=== PATIENT | female | born 1950 | race Caucasian/White ===

== ENCOUNTER → 2018-05-08 | Outpatient (CLI) | payer MEDICARE, OTHER ==
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
== END ==
LOC: M PAIN 11:30
PROVIDERS: ATTEND Anesthesiology
DX: M47.816 Spondylosis without myelopathy or radiculopathy, lumbar region (principal); M48.061 Spinal stenosis, lumbar region without neurogenic claudication; G89.29 Other chronic pain; I10 Essential (primary) hypertension; Z96.651 Presence of right artificial knee joint; Z96.641 Presence of right artificial hip joint; Z87.891 Personal history of nicotine dependence; Z88.1 Allergy status to other antibiotic agents; Z88.8 Allergy status to other drugs, medicaments and biological substances; Z79.899 Other long term (current) drug therapy

== ENCOUNTER → 2018-05-11 | Outpatient (CLI) | payer MEDICARE, OTHER ==
--- NOTE | 2018-05-12 11:09 | REP ---
MR THORACIC SPINE WITHOUT CONTRAST: HISTORY: Back pain. A small central disc protrusion is present at the T6-7 level. There is minimal effacement of the thecal sac without spinal cord compression. The T6 neural foramina are patent. A disc bulge is present at the T12-L1 level. There is minimal effacement of the thecal sac without spinal cord compression. The T12 neural foramina are patent. There is no other disc bulge or herniation. The remaining neural foramina are patent. The spinal cord is normal in signal intensity. The T11-12 through L1-2 intervertebral discs are decreased in height consistent with disc degeneration. Increased signal intensity on T2-weighted images is present in the endplates of the T11 through L2 vertebral bodies. This represents degenerative change. IMPRESSION: 1. Small disc protrusion at the T6-7 level without spinal cord compression. 2. Disc bulge at the T12-L1 level without spinal cord compression. Electronically Signed by Mariano Shin MD 05/12/2018 11:30 A
== END ==
LOC: M RAD 16:31
PROVIDERS: ATTEND Anesthesiology
DX: M51.24 Other intervertebral disc displacement, thoracic region (principal)

== ENCOUNTER → 2018-07-17 | Outpatient (CLI) | payer MEDICARE, OTHER ==
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
== END ==
LOC: M PAIN 10:00
PROVIDERS: ATTEND Anesthesiology
DX: M79.18 Myalgia, other site (principal); I10 Essential (primary) hypertension; K21.9 Gastro-esophageal reflux disease without esophagitis; Z79.899 Other long term (current) drug therapy; Z88.1 Allergy status to other antibiotic agents; Z88.8 Allergy status to other drugs, medicaments and biological substances; Z96.651 Presence of right artificial knee joint; Z96.641 Presence of right artificial hip joint; Z86.19 Personal history of other infectious and parasitic diseases; Z87.891 Personal history of nicotine dependence

== ENCOUNTER → 2018-08-16 | Outpatient (CLI) | payer MEDICARE, OTHER ==
[~2018-08-16] MED LIST: BUPIVACAINE HCL 0.25% 10 ML VIAL As Ordered ONE; BUPIVACAINE HCL 0.25% 30 ML VIAL As Ordered ONE; FURO20TA2 PO; LAMO150T2 PO; LEVO50TA5 PO; LOSA50TA88 PO; METO1TAB32 PO; METO1TAB7 PO; PAXI40TA10 PO; POTA1TAB23 PO; REME30TA PO; SULF500T2 PO; TIZA6CAP PO; TRIAMCINOLONE ACETONIDE SUSP 40 MG/ML VIAL (J3301) As Ordered ONE; diazePAM 5 MG TAB As Ordered ONE
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
== END ==
LOC: M PAIN 08:30
PROVIDERS: ATTEND Anesthesiology
DX: G89.29 Other chronic pain (principal); M79.18 Myalgia, other site; M54.2 Cervicalgia; R13.19 Other dysphagia; Z79.899 Other long term (current) drug therapy; Z87.891 Personal history of nicotine dependence; Z88.8 Allergy status to other drugs, medicaments and biological substances
CPT/HCPCS: 20552; J3301

== ENCOUNTER 2018-09-04 12:03 | Emergency (ER) | payer MEDICARE, OTHER ==
[2018-09-04] MEDS ORDERED: POTA1TAB23 PO (12:21)
[2018-09-04] MEDS ORDERED: LOSA50TA88 PO (12:21)
[2018-09-04] MEDS ORDERED: REME30TA PO (12:21)
[2018-09-04] MEDS ORDERED: FURO20TA2 PO (12:21)
[2018-09-04] MEDS ORDERED: PAXI40TA10 PO (12:21)
[2018-09-04] MEDS ORDERED: LAMO150T2 PO (12:21)
[2018-09-04] MEDS ORDERED: SULF500T2 PO (12:21)
[2018-09-04] MEDS ORDERED: LEVO50TA5 PO (12:23)
[2018-09-04] MEDS ORDERED: TIZA6CAP PO (12:23)
[2018-09-04] MEDS ORDERED: METO1TAB32 PO (12:23)
[2018-09-04] MEDS ORDERED: ASPIRIN 81 MG CHEW TABLET PO ONE (12:30)
[2018-09-04] MEDS ORDERED: FUROSEMIDE 40 MG/4 ML VIAL (J1940) IV ONE (12:30)
[2018-09-04] MEDS ORDERED: METOPROLOL 5 MG/5 ML VIAL IV SCH (12:30)
[2018-09-04] MEDS ORDERED: METOPROLOL TART 25 MG TABLET PO ONE (13:00)
[2018-09-04 13:04] LABS: BASO # 0.1 10^3/uL (0.0-0.2); BASO % 1.2 % (0.0-1.0); EOS # 0.1 10^3/uL (0.0-0.50); EOS % 1.2 % (0.0-3.0); HEMATOCRIT 39.7 % (36.0-47.0); HEMOGLOBIN 12.7 g/dl (12.0-15.5); LYMPH # 1.2 10^3/uL (1.5-4.5); LYMPH % 27.1 % (24.0-44.0); MEAN CORPUSCULAR HEMOGLOBIN 30.6 pg (27.0-33.0); MEAN CORPUSCULAR VOLUME 95.7 fl (80.0-96.0); MONO # 0.5 10^3/uL (0.0-0.8); MONO % 10.9 % (0.0-5.0); NEUTROPHILS # 2.5 10^3/uL (1.8-7.7); NEUTROPHILS % 58.4 % (36.0-66.0); PLATELET COUNT, AUTOMATED 199 10^3/uL (150-450); RED BLOOD COUNT 4.15 10^6/uL (4.00-5.40); WHITE BLOOD COUNT 4.3 10^3/uL (4.0-10.0)
[2018-09-04 13:05] VITALS: BP 166/105
--- NOTE | 2018-09-04 13:14 | REP ---
CHEST, PORTABLE: AP portable view of the chest is performed. Comparison 11/18/2003. There is no acute infiltrate. Heart is not significantly enlarged. There is a calcification and tortuosity of the thoracic aorta. The mediastinal silhouette is otherwise unremarkable. IMPRESSION: No acute infiltrate. Electronically Signed by Roberto Daniel MD 09/05/2018 11:35 A
[2018-09-04 13:20] LABS: INR 0.95; PROTHROMBIN TIME 12.8 SECONDS (12.1-14.4)
[2018-09-04 13:33] LABS: ALBUMIN 4.2 GM/DL (3.2-5.2); ALT/SGPT 29 U/L (12-78); BILIRUBIN,DIRECT 0.1 MG/DL (0.0-0.2); BILIRUBIN,TOTAL 0.4 MG/DL (0.2-1.0); BLOOD UREA NITROGEN 15 MG/DL (7-18); CALCIUM LEVEL 9.4 MG/DL (8.8-10.2); CARBON DIOXIDE LEVEL 28 MEQ/L (21-32); CHLORIDE LEVEL 103 MEQ/L (98-107); CK-MB VALUE MASS 3.8 NG/ML (<3.6); CPK CREATINE PHOSPHOKINASE 183 U/L (26-192); CREATININE FOR GFR 1.16 MG/DL (0.55-1.30); GLOMERULAR FILTRATION RATE 49.8 (>45); GLUCOSE, FASTING 84 MG/DL (70-100); MB/CK RELATIVE INDEX 2.08 (< OR =4); NT-PRO BNP 176 PG/ML (<125); POTASSIUM SERUM 4.1 MEQ/L (3.5-5.1); SODIUM LEVEL 139 MEQ/L (136-145); TOTAL PROTEIN 7.6 GM/DL (6.4-8.2); TROPONIN I < 0.02 NG/ML (< 0.10)
[2018-09-04] MEDS ORDERED: METO1TAB7 PO (13:40)
[2018-09-04 13:58] VITALS: BP 169/108
--- NOTE | 2018-09-05 07:52 | ECGEPIP ---
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
== END 2018-09-04 14:11 | disposition home or self-care (01) ==
LOC: M ED 12:03
DX: I10 Essential (primary) hypertension (principal); Z79.899 Other long term (current) drug therapy; Z88.1 Allergy status to other antibiotic agents; Z88.8 Allergy status to other drugs, medicaments and biological substances
CPT/HCPCS: 36415; 71045; 80048; 80076; 82550; 82553; 83880; 84484; 85025; 85610; 93005; 93041; 94760; 96374; 99285; G0463; J1940

== ENCOUNTER → 2018-09-04 | Outpatient (CLI) | payer MEDICARE, OTHER ==
[~2018-09-04] MED LIST changes: -BUPIVACAINE HCL 0.25% 10 ML VIAL As Ordered ONE; -BUPIVACAINE HCL 0.25% 30 ML VIAL As Ordered ONE; -TRIAMCINOLONE ACETONIDE SUSP 40 MG/ML VIAL (J3301) As Ordered ONE; -diazePAM 5 MG TAB As Ordered ONE
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
== END ==
LOC: M PAIN 10:15
PROVIDERS: ATTEND Anesthesiology
DX: M79.18 Myalgia, other site (principal); M54.5 Low back pain; G89.29 Other chronic pain; M47.816 Spondylosis without myelopathy or radiculopathy, lumbar region; Z79.891 Long term (current) use of opiate analgesic; Z79.899 Other long term (current) drug therapy; Z87.891 Personal history of nicotine dependence; Z88.8 Allergy status to other drugs, medicaments and biological substances

== ENCOUNTER → 2018-11-14 | Outpatient (REF) | payer MEDICARE, OTHER ==
[2018-11-14 16:52] LABS: BASO # 0.1 10^3/uL (0.0-0.2); BASO % 1.3 % (0.0-1.0); EOS # 0.2 10^3/uL (0.0-0.50); EOS % 3.2 % (0.0-3.0); HEMOGLOBIN 11.9 g/dl (12.0-15.5); LYMPH # 1.2 10^3/uL (1.5-4.5); LYMPH % 22.6 % (24.0-44.0); MEAN CORPUSCULAR HGB CONC 32.2 g/dl (32.0-36.5); MEAN CORPUSCULAR VOLUME 102.5 fl (80.0-96.0); MONO # 0.6 10^3/uL (0.0-0.8); MONO % 11.5 % (0.0-5.0); NEUTROPHILS # 3.1 10^3/uL (1.8-7.7); NEUTROPHILS % 58.6 % (36.0-66.0); PLATELET COUNT, AUTOMATED 173 10^3/uL (150-450); RED BLOOD COUNT 3.61 10^6/uL (4.00-5.40); WHITE BLOOD COUNT 5.3 10^3/uL (4.0-10.0)
[2018-11-14 17:07] LABS: ALBUMIN 4.3 GM/DL (3.2-5.2); BILIRUBIN,TOTAL 0.5 MG/DL (0.2-1.0); CALCIUM LEVEL 9.3 MG/DL (8.8-10.2); CHOLESTEROL RISK RATIO 3.839 (<5); CREATININE FOR GFR 1.4 MG/DL (0.55-1.30); FREE T4 0.9 NG/DL (0.76-1.46); GLOMERULAR FILTRATION RATE 40.1 (>45); POTASSIUM SERUM 4.2 MEQ/L (3.5-5.1); THYROID STIMULATING HORMONE 1.92 uIU/ML (0.358-3.740); TOTAL PROTEIN 7.1 GM/DL (6.4-8.2)
== END ==
LOC: M SFHCLERA 10:57
PROVIDERS: ATTEND Nurse Practitioner Family
DX: I12.9 Hypertensive chronic kidney disease with stage 1 through stage 4 chronic kidney disease, or unspecified chronic kidney disease (principal); E03.9 Hypothyroidism, unspecified; E78.2 Mixed hyperlipidemia; N18.3 Chronic kidney disease, stage 3 (moderate)

== ENCOUNTER → 2018-11-20 | Outpatient (CLI) | payer MEDICARE, OTHER ==
[~2018-11-20] MED LIST changes: +CALCCAP4 PO; -LAMO150T2 PO; +LAMO150T3 PO; +PANT20TA2 PO; +PANT40TA3 PO; +PRAM1TAB7 PO; +ROSU10TA6 PO; +TIZA4TAB4 PO
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
== END ==
LOC: M PAIN 15:00
PROVIDERS: ATTEND Anesthesiology
DX: M54.5 Low back pain (principal); G89.29 Other chronic pain; M79.18 Myalgia, other site; I10 Essential (primary) hypertension; K21.9 Gastro-esophageal reflux disease without esophagitis; Z96.641 Presence of right artificial hip joint; Z96.651 Presence of right artificial knee joint; Z87.891 Personal history of nicotine dependence; Z88.1 Allergy status to other antibiotic agents; Z88.8 Allergy status to other drugs, medicaments and biological substances; Z79.899 Other long term (current) drug therapy

== ENCOUNTER → 2018-11-24 | Outpatient (CLI) | payer MEDICARE, OTHER ==
[~2018-11-24] MED LIST changes: +BUPIVACAINE HCL 0.25% 10 ML VIAL As Ordered ONE; +BUPIVACAINE HCL 0.25% 30 ML VIAL As Ordered ONE; -CALCCAP4 PO; +LAMO150T2 PO; -LAMO150T3 PO; -PANT20TA2 PO; -PANT40TA3 PO; -PRAM1TAB7 PO; -ROSU10TA6 PO; -TIZA4TAB4 PO; +TRIAMCINOLONE ACETONIDE SUSP 40 MG/ML VIAL (J3301) As Ordered ONE; +diazePAM 5 MG TAB As Ordered ONE; +oxyCODONE 5MG TAB As Ordered ONE
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
== END ==
LOC: M PAIN 13:15
PROVIDERS: ATTEND Anesthesiology
DX: M79.18 Myalgia, other site (principal); I10 Essential (primary) hypertension; M54.5 Low back pain; M54.2 Cervicalgia; K21.9 Gastro-esophageal reflux disease without esophagitis; R13.19 Other dysphagia; Z96.653 Presence of artificial knee joint, bilateral; Z79.899 Other long term (current) drug therapy; Z88.8 Allergy status to other drugs, medicaments and biological substances; Z88.1 Allergy status to other antibiotic agents
CPT/HCPCS: 20552; J3301

== ENCOUNTER → 2018-12-12 | Outpatient (CLI) | payer MEDICARE, OTHER ==
[~2018-12-12] MED LIST changes: -BUPIVACAINE HCL 0.25% 10 ML VIAL As Ordered ONE; -BUPIVACAINE HCL 0.25% 30 ML VIAL As Ordered ONE; -TRIAMCINOLONE ACETONIDE SUSP 40 MG/ML VIAL (J3301) As Ordered ONE; -diazePAM 5 MG TAB As Ordered ONE; -oxyCODONE 5MG TAB As Ordered ONE
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
== END ==
LOC: M PAIN 15:00
PROVIDERS: ATTEND Anesthesiology
DX: M51.16 Intervertebral disc disorders with radiculopathy, lumbar region (principal); I10 Essential (primary) hypertension; M54.2 Cervicalgia; K21.9 Gastro-esophageal reflux disease without esophagitis; R13.10 Dysphagia, unspecified; N28.9 Disorder of kidney and ureter, unspecified; Z96.652 Presence of left artificial knee joint; Z96.641 Presence of right artificial hip joint; Z90.49 Acquired absence of other specified parts of digestive tract; Z87.891 Personal history of nicotine dependence; Z79.899 Other long term (current) drug therapy; Z88.8 Allergy status to other drugs, medicaments and biological substances; Z88.1 Allergy status to other antibiotic agents

== ENCOUNTER → 2019-01-02 | Outpatient (CLI) | payer MEDICARE, OTHER ==
[~2019-01-02] MED LIST changes: +CALCCAP4 PO; -LAMO150T2 PO; +LAMO150T3 PO; +PANT20TA2 PO; +PANT40TA3 PO; +PRAM1TAB7 PO; +ROSU10TA6 PO; +TIZA4TAB4 PO
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
== END ==
LOC: M PAIN 15:15
PROVIDERS: ATTEND Anesthesiology
DX: M51.16 Intervertebral disc disorders with radiculopathy, lumbar region (principal); G89.29 Other chronic pain; I10 Essential (primary) hypertension; K21.9 Gastro-esophageal reflux disease without esophagitis; Z96.652 Presence of left artificial knee joint; Z96.642 Presence of left artificial hip joint; Z87.891 Personal history of nicotine dependence; Z88.1 Allergy status to other antibiotic agents; Z88.8 Allergy status to other drugs, medicaments and biological substances; Z79.899 Other long term (current) drug therapy

== ENCOUNTER → 2019-01-30 | Outpatient (CLI) | payer MEDICARE, OTHER ==
[~2019-01-30] MED LIST changes: -CALCCAP4 PO; +LAMO150T2 PO; -LAMO150T3 PO; -PANT20TA2 PO; -PRAM1TAB7 PO; -ROSU10TA6 PO; -TIZA4TAB4 PO
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
== END ==
LOC: M PAIN 08:30
PROVIDERS: ATTEND Anesthesiology
DX: M54.5 Low back pain (principal); G89.29 Other chronic pain; M51.16 Intervertebral disc disorders with radiculopathy, lumbar region; I10 Essential (primary) hypertension; K21.9 Gastro-esophageal reflux disease without esophagitis; Z96.652 Presence of left artificial knee joint; Z96.641 Presence of right artificial hip joint; Z87.891 Personal history of nicotine dependence; Z88.1 Allergy status to other antibiotic agents; Z88.8 Allergy status to other drugs, medicaments and biological substances; Z79.899 Other long term (current) drug therapy

== ENCOUNTER → 2019-02-02 | Outpatient (REF) | payer MEDICARE, OTHER ==
[~2019-02-02] MED LIST changes: -LAMO150T2 PO; +LAMO150T3 PO
[2019-02-02 16:40] LABS: BASO # 0.1 10^3/uL (0.0-0.2); BASO % 1.5 % (0.0-1.0); EOS # 0.1 10^3/uL (0.0-0.5); EOS % 2.2 % (0.0-3.0); HEMOGLOBIN 11.9 g/dl (12.0-15.5); LYMPH # 1.9 10^3/uL (1.5-5.0); LYMPH % 28.6 % (24.0-44.0); MEAN CORPUSCULAR HEMOGLOBIN 32.8 pg (27.0-33.0); MEAN CORPUSCULAR HGB CONC 31.3 g/dl (32.0-36.5); MEAN CORPUSCULAR VOLUME 104.7 fl (80.0-96.0); MONO # 0.7 10^3/uL (0.0-0.8); NEUTROPHILS # 3.5 10^3/uL (1.5-8.5); NEUTROPHILS % 53.6 % (36.0-66.0); PLATELET COUNT, AUTOMATED 214 10^3/uL (150-450); RED BLOOD COUNT 3.63 10^6/uL (4.00-5.40); WHITE BLOOD COUNT 6.5 10^3/uL (4.0-10.0)
[2019-02-02 16:51] LABS: CALCIUM LEVEL 8.9 MG/DL (8.8-10.2); CREATININE FOR GFR 1.69 MG/DL (0.55-1.30); GLOMERULAR FILTRATION RATE 32.1 (>45); POTASSIUM SERUM 4.5 MEQ/L (3.5-5.1)
[2019-02-06 10:07] LABS: Methylmalonic Acid 445 nmol/L (0-378)
== END ==
LOC: M SFHCLERA 10:24
PROVIDERS: ATTEND Family Medicine
DX: Z01.818 Encounter for other preprocedural examination (principal); D75.89 Other specified diseases of blood and blood-forming organs
CPT/HCPCS: 80048; 82607; 82746; 83921; 85025; 93005; G0463

== ENCOUNTER → 2019-02-08 | Outpatient (CLI) | payer MEDICARE, OTHER ==
[~2019-02-08] MED LIST changes: +LAMO150T2 PO; -LAMO150T3 PO
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
== END ==
LOC: M PAIN 12:00
PROVIDERS: ATTEND Anesthesiology
DX: M51.16 Intervertebral disc disorders with radiculopathy, lumbar region (principal); N18.3 Chronic kidney disease, stage 3 (moderate); R71.8 Other abnormality of red blood cells

== ENCOUNTER → 2019-04-12 | Outpatient (CLI) | payer MEDICARE, BC ==
[~2019-04-12] MED LIST changes: +CALCCAP4 PO; -LAMO150T2 PO; +LAMO150T3 PO; +PANT20TA2 PO; +PRAM1TAB7 PO; +ROSU10TA6 PO; +TIZA4TAB4 PO
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
== END ==
LOC: M PAIN 15:00
PROVIDERS: ATTEND Anesthesiology
DX: M51.16 Intervertebral disc disorders with radiculopathy, lumbar region (principal); N18.3 Chronic kidney disease, stage 3 (moderate); R71.8 Other abnormality of red blood cells

== ENCOUNTER → 2019-04-16 | Outpatient (REF) | payer MEDICARE, BC ==
[2019-04-16 20:36] LABS: INR 1.13; PROTHROMBIN TIME 14.2 SECONDS (11.8-14.0)
== END ==
LOC: M SFHCLERA 15:54
PROVIDERS: ATTEND Nurse Practitioner Family
DX: Z01.818 Encounter for other preprocedural examination (principal); Z79.899 Other long term (current) drug therapy
CPT/HCPCS: 85610; G0463

== ENCOUNTER → 2019-04-20 | Outpatient (CLI) | payer MEDICARE, BC ==
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
== END ==
LOC: M PAIN 14:30
PROVIDERS: ATTEND Anesthesiology
DX: M47.816 Spondylosis without myelopathy or radiculopathy, lumbar region (principal); M46.1 Sacroiliitis, not elsewhere classified; G89.29 Other chronic pain; I10 Essential (primary) hypertension; K21.9 Gastro-esophageal reflux disease without esophagitis; Z96.652 Presence of left artificial knee joint; Z96.641 Presence of right artificial hip joint; Z87.891 Personal history of nicotine dependence; Z88.1 Allergy status to other antibiotic agents; Z88.8 Allergy status to other drugs, medicaments and biological substances; Z79.899 Other long term (current) drug therapy

== ENCOUNTER → 2019-05-29 | Outpatient (CLI) | payer MEDICARE, BC ==
[~2019-05-29] MED LIST changes: +BUPIVACAINE HCL 0.25% 30 ML VIAL As Ordered ONE; +CHLO25TA PO; +ISOVUE-M 300 61% 15ML VIAL (Q9967) As Ordered ONE; +K 10100T PO; +LIDOCAINE 1% SDV INJ 30 ML VIAL As Ordered ONE; +LOPR1TAB7 PO; +NORV5TAB PO
--- NOTE | 2019-05-29 13:51 | REP ---
C-ARM VIEWS LOWER LUMBAR SPINE: Clinical history: Pain. Two C-arm views lower lumbar spine are performed during bilateral facet injection performed by Dr. Swift. Three needles are seen along the bilateral lower lumbar spine. Contrast is injected. 37 seconds of fluoroscopy time utilized. Electronically Signed by Roberto Daniel MD 05/29/2019 07:57 P
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
== END ==
LOC: M PAIN 10:45
PROVIDERS: ATTEND Anesthesiology
DX: M47.816 Spondylosis without myelopathy or radiculopathy, lumbar region (principal); M47.817 Spondylosis without myelopathy or radiculopathy, lumbosacral region; I10 Essential (primary) hypertension; K21.9 Gastro-esophageal reflux disease without esophagitis; G47.33 Obstructive sleep apnea (adult) (pediatric); Z87.891 Personal history of nicotine dependence; Z79.899 Other long term (current) drug therapy; Z88.8 Allergy status to other drugs, medicaments and biological substances
CPT/HCPCS: 64493; 64494; Q9967

== ENCOUNTER 2019-06-07 13:39 | Inpatient (IN) | payer MEDICARE, BC ==
[~2019-06-07] VITALS: Ht 162.6 cm; Wt 92.6 kg
[~2019-06-07 13:39] MED LIST changes: -BUPIVACAINE HCL 0.25% 30 ML VIAL As Ordered ONE; -ISOVUE-M 300 61% 15ML VIAL (Q9967) As Ordered ONE; -LIDOCAINE 1% SDV INJ 30 ML VIAL As Ordered ONE
[2019-06-07 14:38] LABS: BASO # 0.1 10^3/uL (0.0-0.2); BASO % 0.9 % (0.0-1.0); EOS # 0.1 10^3/uL (0.0-0.5); EOS % 1.2 % (0.0-3.0); HEMATOCRIT 34.5 % (36.0-47.0); HEMOGLOBIN 11.3 g/dl (12.0-15.5); LYMPH # 1.5 10^3/uL (1.5-5.0); LYMPH % 22.7 % (24.0-44.0); MEAN CORPUSCULAR HEMOGLOBIN 32.4 pg (27.0-33.0); MEAN CORPUSCULAR HGB CONC 32.8 g/dl (32.0-36.5); MEAN CORPUSCULAR VOLUME 98.9 fl (80.0-96.0); MONO # 0.6 10^3/uL (0.0-0.8); MONO % 9.2 % (0.0-5.0); NEUTROPHILS # 4.2 10^3/uL (1.5-8.5); NEUTROPHILS % 62.2 % (36.0-66.0); PLATELET COUNT, AUTOMATED 219 10^3/uL (150-450); RED BLOOD COUNT 3.49 10^6/uL (4.00-5.40); WHITE BLOOD COUNT 6.8 10^3/uL (4.0-10.0)
--- NOTE | 2019-06-07 14:40 | REP ---
Portable chest x-ray: Single view. History: Chest pain. Comparison chest x-ray: September 04, 2018. Findings: Monitoring electrodes overlie the chest. The patient is rotated slightly to the left. The lungs are well inflated and clear. The pleural angles are sharp. Cardiomediastinal silhouette and bony thorax are unremarkable. Impression: No acute disease. Electronically Signed by Anirudh Tejada MD 06/07/2019 02:31 P
[2019-06-07 14:56] LABS: BLOOD UREA NITROGEN 37 MG/DL (7-18); CALCIUM LEVEL 8.8 MG/DL (8.8-10.2); CARBON DIOXIDE LEVEL 27 MEQ/L (21-32); CHLORIDE LEVEL 104 MEQ/L (98-107); CPK CREATINE PHOSPHOKINASE 168 U/L (26-192); CREATININE FOR GFR 1.89 MG/DL (0.55-1.30); GLOMERULAR FILTRATION RATE 28.2 (>45); GLUCOSE, FASTING 106 MG/DL (70-100); MB/CK RELATIVE INDEX 1.79 (< OR =4); POTASSIUM SERUM 3.8 MEQ/L (3.5-5.1); SODIUM LEVEL 138 MEQ/L (136-145); TROPONIN I < 0.02 NG/ML (< 0.10)
[2019-06-07] MEDS ORDERED: NS 1,000 ML IV ONE ×2 (16:00→16:15)
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
--- NOTE | 2019-06-07 16:50 | REP ---
CT of the cervical spine without IV contrast: Axial images are acquired with helical scanning and are reformatted sagittal and coronal projections. The skull base, C1 and C2 are unremarkable. Vertebral body heights and alignment are normal. The facets are normally aligned. There is diffuse facet osteoarthritis. There is degenerative disc disease at C4-5 and C5-6. The prevertebral soft tissues are unremarkable. There are no posterior element fractures. Impression: There is no fracture or listhesis. There is facet osteoarthritis. There is degenerative disc disease as described. Electronically Signed by Roberto Rose MD 06/07/2019 04:42 P
[2019-06-07] MEDS ORDERED: METO1TAB33 PO (19:01)
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
[2019-06-07 20:30] VITALS: BP 122/87
[2019-06-07] MEDS: NS 1,000 ML IV SCH (20:48)
--- NOTE | 2019-06-07 20:49 | REPVR ---
PROCEDURE INFORMATION: Exam: US Retroperitoneal Limited, Kidneys Exam date and time: 06/07/2019 7:58 PM Age: 68 years old Clinical indication: Abnormal findings; Abnormal lab test; Abnormal kidney function lab tests; Additional info: [place] TECHNIQUE: Imaging protocol: Real-time ultrasound of the retroperitoneum with image documentation. Examination was focused on the kidneys. COMPARISON: No relevant prior studies available. FINDINGS: Right kidney: The right kidney measures 11.3 x 5.3 x 3.8 cm. There is increased echogenicity of the right renal cortex, suggestive of medical renal disease. No hydronephrosis of the right kidney. At the inferior pole of the right kidney, there is an exophytic simple appearing cyst measuring 2.4 x 2.2 x 2.5 cm. At the midpole of the right kidney, a small hypoechoic cyst is identified measuring 0.6 x 0.8 x 0.6 cm. Left kidney: The left kidney measures 10.7 x 4.2 x 5.0 cm. There is increased echogenicity of the left renal cortex, suggestive of medical renal disease. No hydronephrosis of the left kidney. Foci of increased echogenicity are identified within the left renal sinus fat, without definitive posterior acoustic shadowing to confirm nephrolithiasis. Exophytic to the lower pole of the left kidney, there is a 1.9 x 1.7 x 1.7 cm cyst. This is mildly complex, with a small focus of increased echogenicity or calcification visualized peripherally. Bladder: Bilateral ureteral jets are identified within the bladder. No significant bladder wall thickening. IMPRESSION: 1. There is increased echogenicity of the bilateral renal cortices, suggestive of medical renal disease. Clinical correlation is recommended. 2. At the inferior pole of the right kidney, there is an exophytic simple appearing cyst. At the midpole of the right kidney, a small cyst is identified. 3. Exophytic to the lower pole of the left kidney, there is a 1.9 x 1.7 x 1.7 cm cyst. This is mildly complex, with a small focus of increased echogenicity or calcification visualized peripherally. Follow-up ultrasonography recommended. COMMENTS: Consistent with the [employer]'s Incidental Findings Committee white paper (J Am Drew Radiol 2018): Any incidental cystic renal lesion classified in this report as too small to characterize or simple appearing is likely a benign cyst. No follow-up imaging is recommended for these lesions per consensus recommendations based on imaging criteria. Electronically signed by: Hayden Martin On 06/07/2019 20:49:39 PM
[2019-06-07 20:54] LABS: CK-MB VALUE MASS 2.5 NG/ML (<3.6); CPK CREATINE PHOSPHOKINASE 150 U/L (26-192); MAGNESIUM LEVEL 1.6 MG/DL (1.8-2.4); MB/CK RELATIVE INDEX 1.67 (< OR =4); TROPONIN I < 0.02 NG/ML (< 0.10)
[2019-06-07 21:39] LABS: APPEARANCE, URINE CLEAR (CLEAR); BILIRUBIN, URINE AUTO NEGATIVE (NEGATIVE); BLOOD, URINE BLOOD NEGATIVE (NEGATIVE); COLOR, URINE YELLOW (YELLOW); GLUCOSE, URINE (UA) AUTO NEGATIVE (NEGATIVE); KETONE, URINE AUTO NEGATIVE (NEGATIVE); LEUKOCYTE ESTERASE, URINE AUTO NEGATIVE (NEGATIVE); NITRITE, URINE AUTO NEGATIVE (NEGATIVE); PROTEIN, URINE AUTO NEGATIVE (NEGATIVE); SPECIFIC GRAVITY URINE AUTO 1.005 (1.002-1.035)
[2019-06-07 21:40] LABS: BACTERIA, URINE AUTO NEG (NEGATIVE); RBC, URINE AUTO 0 /HPF (0-3); SQUAMOUS EPITHELIAL CELL UR AU 0 /HPF (0-6); TRANSITIONAL EPITHELIAL AUTO 0 /HPF; WBC, URINE AUTO 2 /HPF (0-3)
[2019-06-07 21:47] LABS: CREATININE,RANDOM URINE 40.6 MG/DL; SODIUM,RANDOM URINE 75 MEQ/L; UREA NITROGEN RANDOM URINE 249 MG/DL
[2019-06-07] MEDS: MIRTAZAPINE 15 MG TAB PO SCH ×2 (22:56→22:57)
[2019-06-07] MEDS: PRAMIPEXOLE 1 MG TAB PO SCH ×2 (22:56→22:57)
[2019-06-07] MEDS: ROSUVASTATIN 10 MG TAB (CRESTOR) PO SCH ×2 (22:56→22:57)
[2019-06-08] VITALS: BP_SYST 102; BP_SYST 133; BP_SYST 99; BP_DIAS 56; BP_DIAS 85
[2019-06-08 02:43] LABS: CK-MB VALUE MASS 2.2 NG/ML (<3.6); CPK CREATINE PHOSPHOKINASE 145 U/L (26-192); MB/CK RELATIVE INDEX 1.52 (< OR =4); TROPONIN I < 0.02 NG/ML (< 0.10)
[2019-06-08 03:33] LABS: MAGNESIUM LEVEL 1.7 MG/DL (1.8-2.4)
[2019-06-08 06:00] VITALS: BP 98/66
[2019-06-08 06:01] LABS: HEMATOCRIT 31.7 % (36.0-47.0); HEMOGLOBIN 10.3 g/dl (12.0-15.5); MEAN CORPUSCULAR HEMOGLOBIN 31.8 pg (27.0-33.0); MEAN CORPUSCULAR HGB CONC 32.5 g/dl (32.0-36.5); MEAN CORPUSCULAR VOLUME 97.8 fl (80.0-96.0); PLATELET COUNT, AUTOMATED 153 10^3/uL (150-450); RED BLOOD COUNT 3.24 10^6/uL (4.00-5.40); WHITE BLOOD COUNT 4.7 10^3/uL (4.0-10.0)
[2019-06-08 06:19] LABS: CALCIUM LEVEL 8.2 MG/DL (8.8-10.2); CREATININE FOR GFR 1.49 MG/DL (0.55-1.30); GLOMERULAR FILTRATION RATE 37.2 (>45); MAGNESIUM LEVEL 1.6 MG/DL (1.8-2.4); POTASSIUM SERUM 3.6 MEQ/L (3.5-5.1)
[2019-06-08] MEDS: PANTOPRAZOLE 20 MG TAB PO SCH (08:11)
[2019-06-08] MEDS: PARoxetine 20 MG TAB PO SCH (08:11)
[2019-06-08] MEDS: POTASSIUM CHLORIDE 10 MEQ SR TABLET PO SCH (08:11)
[2019-06-08] MEDS: LEVOTHYROXINE 50MCG TABLET (0.05MG) PO SCH (08:11)
[2019-06-08] MEDS ORDERED: POTASSIUM CHLORIDE 10 MEQ SR TABLET PO ONE (08:45)
[2019-06-08] MEDS: MAG SULF 1GM/100ML (MAG RUN) 1 GM in IV 1 EA IV SCH ×3 (10:00→11:00)
--- NOTE | 2019-06-08 10:48 | REP ---
DUPLEX CAROTID SONOGRAPHY: HISTORY: Syncope. FINDINGS: Antegrade flow was observed in both vertebral arteries. RIGHT CAROTID: The right common carotid artery is unremarkable. There is mild mixed plaquing in the bulb and proximal ICA on two-dimensional scanning. Color flow and spectral Doppler interrogation are unremarkable on the right. Velocity Chart Right Carotid: PSV EDV Right CCA 77 cm/s Right ICA 52 cm/s 25 cm/s Right ECA 47 cm/s Right ICA/CCA ratio normal 0.67. IMPRESSION: Less than 50% category narrowing in the right ICA by Doppler velocity criteria. LEFT CAROTID: The left common carotid artery is unremarkable on two-dimensional scanning. Color flow and spectral Doppler interrogation are unremarkable on the left. Velocity Chart Left Carotid: PSV EDV Left CCA 71 cm/s Left ICA 51 cm/s 24 cm/s Left ECA 46 cm/s Left ICA/CCA ratio normal 0.9 IMPRESSION: Less than 50% category narrowing in the left ICA by Doppler velocity criteria. Electronically Signed by Anirudh Tejada MD 06/08/2019 11:12 A
[2019-06-08] MEDS: NS 1,000 ML IV SCH (11:51)
[2019-06-08 14:00] VITALS: BP 115/75
[2019-06-08 15:57] VITALS: BP_SYST 109; BP_SYST 110; BP_DIAS 65; BP_DIAS 69; BP_DIAS 71
--- NOTE | 2019-06-08 19:28 | ECGEPIP ---
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
[2019-06-08] MEDS: MIRTAZAPINE 15 MG TAB PO SCH (21:11)
[2019-06-08] MEDS: PRAMIPEXOLE 1 MG TAB PO SCH (21:11)
[2019-06-08] MEDS: ROSUVASTATIN 10 MG TAB (CRESTOR) PO SCH (21:11)
[2019-06-08 21:18] VITALS: BP 147/95
--- NOTE | 2019-06-08 21:43 | IPNPDOC ---
Date Seen The patient was seen on 06/08/19. Progress Note SUBJECTIVE: 68-year-old female with past medical history of Chronic kidney disease, hypertension and hypothyroidism, was admitted for orthostatic hypotension and bradycardia, likely related to antihypertensive medication. Patient reports a chronic history of uncontrolled hypertension requiring m ultiple antihypertensive medications. Patient does report multiple falls over the past few months secondary to dizziness upon standing up. Patient remains orthostatic positive in the morning, otherwise asymptomatic at rest. She denies any shortness of breath, chest pain, nausea, vomiting, no fever, diarrhea or constipation at this time. 10 point review of system is negative except for above PHYSICAL EXAMINATION: VITAL SIGNS: Please see below. GENERAL: No distress HEENT: Normocephalic, atraumatic, moist mucous membranes NECK: Supple CARDIOVASCULAR EXAMINATION: S1, S2, no murmurs RESPIRATORY EXAMINATION: Clear to auscultation, no wheezing ABDOMINAL EXAMINATION: Soft, nontender, nondistended, positive bowel sounds EXTREMITIES: Range of motion intact SKIN: No rash NEUROLOGICAL EXAMINATION: Alert and oriented 3, no focal deficits PSYCHIATRIC EXAMINATION: Calm and cooperative LABORATORY DATA, IMAGING STUDIES, MICROBIOLOGY: Please see below. ASSESSMENT AND PLAN: 68-year-old female with past medical history of hypertension, chronic kidney disease and hypothyroidism was admitted for ort hostatic hypotension and bradycardia secondary to dehydration and antihypertensive medication. PROBLEMS: 1. Orthostatic hypotension: Likely iatrogenic from antihypertensive along with dehydration, hold Norvasc, chlorthalidone losartan and metoprolol for now, we will reintroduce antihypertensives as tolerated, continue orthostatic checks every 12 hours, continue IV hydration. 2. Acute on chronic kidney disease: Improving with IV hydration, continue IV fluids, hold chlorthalidone and losartan. 3. Hypothyroidism: Continue levothyroxine. DVT prophylaxis: Heparin subcutaneous GI prophylaxis: Home PPI VS, I&O, 24H, Fishbone Vital Signs/I&O Vital Signs Date Time Temp Pulse Resp B/P (MAP) Pulse Ox O2 Delivery O2 Flow Rate FiO2 06/08/19 21:18 56 147/95 (112) 06/08/19 14:00 97.6 18 93 06/08/19 06:00 Room Air l I&O- Last 24 Hours up to 6 AM 06/08/19 06:00 Intake Total 2140 ml Output Total 1200 ml Balance 940 ml Laboratory Data 24H LABS Laboratory Tests 2 06/08/19 02:03: Magnesium Level 1.7L, Total Creatine Kinase 145, Creatine Kinase MB 2.2, Creatine Kinase MB Relative Index 1.52, Troponin I < 0.02 06/08/19 05:35: Magnesium Level 1.6L, Nucleated Red Blood Cells % (auto) 0.0, Anion Gap 6L, Gl omerular Filtration Rate 37.2L, Calcium Level 8.2L CBC/BMP Laboratory Tests 06/08/19 05:35 ALVA LARSEN MD Jun 08, 2019 21:43
[2019-06-08] MEDS ORDERED: PERCOCET 5MG/325MG TAB PO PRN (21:45)
[2019-06-08 22:00] VITALS: BP 138/90
[2019-06-08] MEDS: HEPARIN SOD (PORCINE) 5000 UNITS/ML VIAL (J1644 PER 1000UNITS) SQ SCH (22:26)
[2019-06-08] MEDS: ACETAMINOPHEN TAB 650MG DOSE (2X325MG) PO PRN (22:27)
[2019-06-09] VITALS (9 sets, daily range): BP systolic 110–166; BP diastolic 80–100
[2019-06-09 06:05] LABS: HEMATOCRIT 33.5 % (36.0-47.0); MEAN CORPUSCULAR HEMOGLOBIN 31.9 pg (27.0-33.0); MEAN CORPUSCULAR HGB CONC 32.8 g/dl (32.0-36.5); MEAN CORPUSCULAR VOLUME 97.1 fl (80.0-96.0); PLATELET COUNT, AUTOMATED 152 10^3/uL (150-450); RED BLOOD COUNT 3.45 10^6/uL (4.00-5.40); WHITE BLOOD COUNT 4.2 10^3/uL (4.0-10.0)
[2019-06-09 06:14] LABS: CALCIUM LEVEL 8.3 MG/DL (8.8-10.2); CREATININE FOR GFR 1.22 MG/DL (0.55-1.30); GLOMERULAR FILTRATION RATE 46.8 (>45); MAGNESIUM LEVEL 2.5 MG/DL (1.8-2.4); POTASSIUM SERUM 4.2 MEQ/L (3.5-5.1)
[2019-06-09] MEDS: PANTOPRAZOLE 20 MG TAB PO SCH (09:33)
[2019-06-09] MEDS: POTASSIUM CHLORIDE 10 MEQ SR TABLET PO SCH (09:33)
[2019-06-09] MEDS: LEVOTHYROXINE 50MCG TABLET (0.05MG) PO SCH (09:33)
[2019-06-09] MEDS: HEPARIN SOD (PORCINE) 5000 UNITS/ML VIAL (J1644 PER 1000UNITS) SQ SCH ×2 (09:34→21:17)
[2019-06-09] MEDS: PARoxetine 20 MG TAB PO SCH (09:34)
[2019-06-09] MEDS: ACETAMINOPHEN TAB 650MG DOSE (2X325MG) PO PRN ×2 (11:45→21:18)
--- NOTE | 2019-06-09 12:52 | ECHO ---
DATE OF PROCEDURE: 06/08/2019 LOCATION: Room 4205 REASON FOR STUDY: Syncope. 2D MEASUREMENTS: IVS: 1.2 cm LV: 4.7 cm LVPW: 1.0 cm LA: 3.6 cm Aorta: 3.4 cm RV: 3.8 cm DOPPLER MEASUREMENTS: Mitral E: 0.9, Mitral A: 0.7 with a ratio of 0.2 Maximum tricuspid valve velocity: 2.2 m/s 2D COMMENTS: 1. Normal left ventricular size, wall thickness and normal global left ventricular systolic function. The estimated left ventricular systolic ejection fraction is 60 to 65%. 2. Normal left atrium. Normal right atrium and right ventricle. 3. The atrial septum appeared to be normal without evidence of defect or shunt. 4. Normal aortic root. 5. Trace to small pericardial effusion was noted. No evidence of cardiac tamponade. 6. Moderately calcified aortic valve with normal leaflet excursion. Normal mitral valve, tricuspid valve and pulmonic valve. The proximal pulmonary artery branches were not well visualized. 7. The inferior vena cava was not visualized. DOPPLER: It detects trace mitral regurgitation, trace aortic regurgitation, traced pulmonic regurgitation, and trace tricuspid regurgitation. The calculated pulmonary artery systolic pressure was normal. Assessment of the left ventricular diastolic function appeared to be normal. IMPRESSION: 1. Normal global left ventricular systolic and diastolic function. 2. Aortic valve sclerosis with trace aortic regurgitation. 3. Trace mitral regurgitation. 4. Trace tricuspid regurgitation with a normal calculated pulmonary artery systolic pressure. 5. Trace pulmonic regurgitation. 6. Trace to small pericardial effusion noted. No evidence of cardiac tamponade. [facility]
[2019-06-09] MEDS: NS 1,000 ML IV SCH (13:38)
[2019-06-09] MEDS ORDERED: amLODIPine 10 MG TAB PO ONE (16:00)
--- NOTE | 2019-06-09 18:14 | IPNPDOC ---
Date Seen The patient was seen on 06/09/19. Progress Note SUBJECTIVE: 68-year-old female with past medical history of Chronic kidney disease, hypertension and hypothyroidism, was admitted for orthostatic hypotension and bradycardia, likely related to antihypertensive medication. Patient reports a chronic history of uncontrolled hypertension requiring m ultiple antihypertensive medications. Patient does report multiple falls over the past few months secondary to dizziness upon standing up. Patient remains orthostatic positive in the morning, otherwise asymptomatic at rest. She denies any shortness of breath, chest pain, nausea, vomiting, no fever, diarrhea or constipation at this time. 06/09/19 Patient seen in the morning, comfortable, working physical therapy and did well initially but did develop symptoms afterwards. She remains orthostatic positive. 10 point review of system is negative except for above PHYSICAL EXAMINATION: VITAL SIGNS: Please see below. GENERAL: No distress HEENT: Normocephalic, atraumatic, moist mucous membranes NECK: Supple CARDIOVASCULAR EXAMINATION: S1, S2, no murmurs RESPIRATORY EXAMINATION: Clear to auscultation, no wheezing ABDOMINAL EXAMINATION: Soft, nontender, nondistended, positive bowel sounds EXTREMITIES: Range of motion intact SKIN: No rash NEUROLOGICAL EXAMINATION: Alert and oriented 3, no focal deficits PSYCHIATRIC EXAMINATION: Calm and cooperative LABORATORY DATA, IMAGING STUDIES, MICROBIOLOGY: Please see below. ASSESSMENT AND PLAN: 68-year-old female with past medical history of hypert ension, chronic kidney disease and hypothyroidism was admitted for orthostatic hypotension and bradycardia secondary to dehydration and antihypertensive medication. PROBLEMS: 1. Orthostatic hypotension: Likely multifactorial from dehydration/iatrogenic/autonomic dysfunction, continue orthostatic blood pressure checks every 12 hours, continue IV hydration, will provide compression stockings, continue physical therapy, will assess in the morning and start midodrine if needed, we'll allow supine hypertension. 2. Acute on chronic kidney disease: Resolved with IV fluids, will monitor 3. Hypothyroidism: Continue levothyroxine. DVT prophylaxis: Heparin subcutaneous GI prophylaxis: Home PPI VS, I&O, 24H, Fishbone Vital Signs/I&O Vital Signs Date Time Temp Pulse Resp B/P (MAP) Pulse Ox O2 Delivery O2 Flow Rate FiO2 06/09/19 17:51 19 Room Air 06/09/19 17:45 75 110/90 (97) 06/09/19 14:00 97.4 97 I&O- Last 24 Hours up to 6 AM 06/09/19 06:00 Intake Total 2096 ml Output Total 3900 ml Balance -1804 ml Laboratory Data 24H LABS Laboratory Tests 2 06/09/19 05:29: Nucleated Red Blood Cells % (auto) 0.0 06/09/19 05:30: Anion Gap 4L, Glomerular Filtration Rate 46.8, Calcium Level 8.3L, Magnesium Level 2.5H CBC/BMP Laboratory Tests 06/09/19 05:29 06/09/19 05:30 ALVA LARSEN MD Jun 09, 2019 18:14
[2019-06-09] MEDS: PRAMIPEXOLE 1 MG TAB PO SCH (21:16)
[2019-06-09] MEDS: ROSUVASTATIN 10 MG TAB (CRESTOR) PO SCH (21:16)
[2019-06-09] MEDS: MIRTAZAPINE 15 MG TAB PO SCH (21:17)
[2019-06-10 05:44] VITALS: BP_SYST 125; BP_SYST 136; BP_SYST 139; BP_DIAS 102; BP_DIAS 87; BP_DIAS 98
[2019-06-10 05:57] LABS: HEMATOCRIT 34.7 % (36.0-47.0); HEMOGLOBIN 11.4 g/dl (12.0-15.5); MEAN CORPUSCULAR HEMOGLOBIN 32.1 pg (27.0-33.0); MEAN CORPUSCULAR HGB CONC 32.9 g/dl (32.0-36.5); MEAN CORPUSCULAR VOLUME 97.7 fl (80.0-96.0); PLATELET COUNT, AUTOMATED 163 10^3/uL (150-450); RED BLOOD COUNT 3.55 10^6/uL (4.00-5.40); WHITE BLOOD COUNT 3.9 10^3/uL (4.0-10.0)
[2019-06-10 06:00] VITALS: BP 113/81
[2019-06-10] MEDS: ACETAMINOPHEN TAB 650MG DOSE (2X325MG) PO PRN (06:09)
[2019-06-10 06:27] LABS: CALCIUM LEVEL 8.3 MG/DL (8.8-10.2); CREATININE FOR GFR 1.24 MG/DL (0.55-1.30); GLOMERULAR FILTRATION RATE 45.9 (>45); MAGNESIUM LEVEL 2.3 MG/DL (1.8-2.4); POTASSIUM SERUM 4.2 MEQ/L (3.5-5.1)
[2019-06-10] MEDS ORDERED: amLODIPine 10 MG TAB PO SCH (09:00)
[2019-06-10] MEDS: PARoxetine 20 MG TAB PO SCH (09:02)
[2019-06-10] MEDS: PANTOPRAZOLE 20 MG TAB PO SCH (09:02)
[2019-06-10] MEDS: LEVOTHYROXINE 50MCG TABLET (0.05MG) PO SCH (09:02)
[2019-06-10] MEDS: HEPARIN SOD (PORCINE) 5000 UNITS/ML VIAL (J1644 PER 1000UNITS) SQ SCH (09:03)
[2019-06-10] MEDS: NS 1,000 ML IV SCH (11:58)
--- NOTE | 2019-06-10 21:40 | DS.PDOC ---
Discharge Summary General Date of Admission Jun 07, 2019 at 19:22 Date of Discharge 06/10/19 Attending Physician: ALVA LARSEN MD Discharge Summary PROCEDURES PERFORMED DURING STAY: None ADMITTING DIAGNOSES: 1. Recurrent falls, orthostatic hypotension, syncope DISCHARGE DIAGNOSES: 1. Recurrent falls, orthostatic hypotension, syncope COMPLICATIONS/CHIEF COMPLAINT: Valeriano; Bradycardia;Orthostasis. HISTORY OF PRESENT ILLNESS: 68 y.o female was admitted for recurrent falls, syn cope & orthostatic hypotension. Patient was being treated with four antihypertensives for reportedly resistant hypertension. All antihypertensives were held and patient was noted to have supine hypertension but normal blood pressure w/ sitting/standing. Patient was evaluated and cleared by physical therapy for discharge home. Patient remained Orthostatic positive given elevated supine BP, compression stockings and hydration were recommended. Patient is clinically and hemodynamically stable for discharge and outpatient follow up. Patient will be discharged on ZERO antihypertensives and is strongly advised to follow up w/ her PCP in 1 week for BP check and restarting anti-hypertensives (if warranted), one at at time. HOSPITAL COURSE: As above DISCHARGE MEDICATIONS: Please see below. ALLERGIES: Please see below. PHYSICAL EXAMINATION: VITAL SIGNS: Please see below. GENERAL: No distress HEENT: Normocephalic, atraumatic, moist mucous membranes NECK: Supple CARDIOVASCULAR EXAMINATION: S1, S2, no murmurs RESPIRATORY EXAMINATION: Clear to auscultation, no wheezing ABDOMINAL EXAMINATION: Soft, nontender, nondistended, positive bowel sounds EXTREMITIES: Range of motion intact SKIN: No rash NEUROLOGICAL EXAMINATION: Alert and oriented 3, no focal deficits PSYCHIATRIC EXAMINATION: Calm and cooperative LABORATORY DATA: Please see below. IMAGING: CT head ^ neck negative for acute pathology PROGNOSIS: Fair ACTIVITY: As tolerated DIET: Cardiac DISCHARGE PLAN: Follow up with PCP in 1-2 weeks DISPOSITION: 01 Home, Self-Care. DISCHARGE INSTRUCTIONS: 1. As above DISCHARGE CONDITION: Stable TIME SPENT ON DISCHARGE: Greater than 32 minutes. Vital Signs/I&Os Vital Signs Date Time Temp Pulse Resp B/P (MAP) Pulse Ox O2 Delivery O2 Flow Rate FiO2 06/10/19 06:00 98.2 89 17 113/81 (92) 95 Room Air I&O- Last 24 Hours up to 6 AM 06/10/19 06:00 Intake Total 3870 ml Output Total 2850 ml Balance 1020 ml Laboratory Data Labs 24H Laboratory Tests 2 06/10/19 05:27: Nucleated Red Blood Cells % (auto) 0.0, Anion Gap 1L, Glomerular Filtration Rate 45.9, Calcium Level 8.3L, Magnesium Level 2.3 CBC/BMP Laboratory Tests 06/10/19 05:27 Discharge Medications Scheduled Calcium Carbonate/Vitamin D3 (Calcium 600 + Vit D 400 Softgl) 1 Each Capsule, 1 CAP PO QHS, (Reported) Lamotrigine (Lamotrigine) 150 Mg Tablet, 150 MG PO BID, (Reported) Levothyroxine Sodium (Levothyroxine Sodium) 50 Mcg Tablet, 50 MCG PO DAILY, (Reported) Mirtazapine (Remeron) 30 Mg Tablet, 30 MG PO QHS, (Reported) Pantoprazole Sodium (Pantoprazole Sodium) 20 Mg Tablet.dr, 20 MG PO DAILY, (Reported) Paroxetine HCl (Paxil) 40 Mg Tablet, 40 MG PO DAILY, (Reported) Pramipexole Di-HCl (Pramipexole Dihydrochloride) 1 Mg Tablet, 1 MG PO QHS, (Reported) Rosuvastatin Calcium (Rosuvastatin Calcium) 10 Mg Tablet, 10 MG PO QHS, (Reported) Sulfasalazine (Sulfasalazine) 500 Mg Tablet, 1,000 MG PO BID, (Reported) Scheduled PRN Tizanidine HCl (Tizanidine HCl) 4 Mg Tablet, 4 MG PO Q12H PRN for MUSCLE SPASMS, (Reported) Allergies Coded Allergies: tetracycline (Verified Allergy, Mild, rash/diarrhea, 06/07/19) aripiprazole (Verified Adverse Reaction, Mild, weakness, "made me dopey", 04/16/19) estradiol (Verified Adverse Reaction, Mild, hyper, 04/16/19) ALVA LARSEN MD Jun 10, 2019 21:40
== END 2019-06-10 14:24 | disposition home or self-care (01) | DRG 312 ==
LOC: M ED 13:39 → M ED INP 19:22 → ENRESERV 19:40 → M MSPAV 20:24
PROVIDERS: ADMIT Internal Medicine; ATTEND Internal Medicine
DX: I95.1 Orthostatic hypotension (principal); N17.9 Acute kidney failure, unspecified; A69.21 Meningitis due to Lyme disease; A69.29 Other conditions associated with Lyme disease; R29.6 Repeated falls; Z79.899 Other long term (current) drug therapy; Z88.8 Allergy status to other drugs, medicaments and biological substances; E03.9 Hypothyroidism, unspecified; M54.2 Cervicalgia; I10 Essential (primary) hypertension; Z96.641 Presence of right artificial hip joint; Z96.652 Presence of left artificial knee joint; Z90.49 Acquired absence of other specified parts of digestive tract; Z87.891 Personal history of nicotine dependence; R00.1 Bradycardia, unspecified; E78.5 Hyperlipidemia, unspecified; F41.9 Anxiety disorder, unspecified; F32.9 Major depressive disorder, single episode, unspecified; E66.9 Obesity, unspecified; Z68.35 Body mass index [BMI] 35.0-35.9, adult; E86.0 Dehydration

== ENCOUNTER → 2019-06-12 | Outpatient (CLI) | payer MEDICARE, BC ==
[~2019-06-12] MED LIST changes: +AMLO10TA5 PO; +AMLO5TAB6 PO; +METO1TAB33 PO; +PARO20TA3 PO; +TOPR100T PO; +VENTAER INH
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
== END ==
LOC: M PAIN 09:30
PROVIDERS: ATTEND Nurse Practitioner Family
DX: M47.816 Spondylosis without myelopathy or radiculopathy, lumbar region (principal); I10 Essential (primary) hypertension; K21.9 Gastro-esophageal reflux disease without esophagitis; R13.10 Dysphagia, unspecified; G47.33 Obstructive sleep apnea (adult) (pediatric); Z87.891 Personal history of nicotine dependence; Z79.899 Other long term (current) drug therapy; Z88.8 Allergy status to other drugs, medicaments and biological substances

== ENCOUNTER → 2019-06-12 | Outpatient (REF) | payer MEDICARE, BC ==
[~2019-06-12] MED LIST changes: -AMLO10TA5 PO; -PARO20TA3 PO; -TOPR100T PO; -VENTAER INH
[2019-06-12 17:01] LABS: ALBUMIN 4.8 GM/DL (3.2-5.2); BILIRUBIN,TOTAL 0.6 MG/DL (0.2-1.0); CALCIUM LEVEL 10.7 MG/DL (8.8-10.2); CREATININE FOR GFR 2.97 MG/DL (0.55-1.30); GLOMERULAR FILTRATION RATE 16.8 (>45); MAGNESIUM LEVEL 2.1 MG/DL (1.8-2.4); POTASSIUM SERUM 3.5 MEQ/L (3.5-5.1); TOTAL PROTEIN 8.4 GM/DL (6.4-8.2)
== END ==
LOC: M SFHCLERA 12:24
PROVIDERS: ATTEND Nurse Practitioner Family
DX: R00.0 Tachycardia, unspecified (principal)

== ENCOUNTER 2019-06-13 16:13 | Inpatient (IN) | payer MEDICARE, BC ==
[~2019-06-13] VITALS: Ht 162.6 cm; Wt 91.6 kg
[~2019-06-13 16:13] MED LIST changes: -AMLO5TAB6 PO
[2019-06-13] MEDS ORDERED: PROMETHAZINE INJ 25 MG/ML VIAL (J2550) IV ONE (16:30)
[2019-06-13] MEDS ORDERED: NS 1,000 ML IV ONE (16:30)
[2019-06-13 16:47] LABS: BASO # 0.1 10^3/uL (0.0-0.2); BASO % 0.5 % (0.0-1.0); EOS % 0.3 % (0.0-3.0); HEMATOCRIT 41.2 % (36.0-47.0); LYMPH # 2.1 10^3/uL (1.5-5.0); LYMPH % 18.9 % (24.0-44.0); MEAN CORPUSCULAR HEMOGLOBIN 32.5 pg (27.0-33.0); MEAN CORPUSCULAR VOLUME 95.6 fl (80.0-96.0); MONO # 0.9 10^3/uL (0.0-0.8); MONO % 7.9 % (0.0-5.0); NEUTROPHILS # 7.8 10^3/uL (1.5-8.5); NEUTROPHILS % 70.9 % (36.0-66.0); PLATELET COUNT, AUTOMATED 250 10^3/uL (150-450); RED BLOOD COUNT 4.31 10^6/uL (4.00-5.40); WHITE BLOOD COUNT 10.9 10^3/uL (4.0-10.0)
[2019-06-13 17:29] LABS: ALBUMIN 4.8 GM/DL (3.2-5.2); BILIRUBIN,DIRECT 0.2 MG/DL (0.0-0.2); BILIRUBIN,TOTAL 0.7 MG/DL (0.2-1.0); CALCIUM LEVEL 10.2 MG/DL (8.8-10.2); CK-MB VALUE MASS 4.1 NG/ML (<3.6); CREATININE FOR GFR 2.47 MG/DL (0.55-1.30); GLOMERULAR FILTRATION RATE 20.7 (>45); MB/CK RELATIVE INDEX 1.93 (< OR =4); POTASSIUM SERUM 3.5 MEQ/L (3.5-5.1); TOTAL PROTEIN 8.5 GM/DL (6.4-8.2); TROPONIN I 0.03 NG/ML (< 0.10)
[2019-06-13] MEDS ORDERED: AMLO5TAB6 PO (17:36)
--- NOTE | 2019-06-13 17:43 | ECGEPIP ---
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
[2019-06-13] MEDS ORDERED: LORazepam 2 MG/ML VIAL (J2060) IV PRN (18:45)
[2019-06-13] MEDS ORDERED: ACETAMINOPHEN 325 MG TAB PO ONE (18:45)
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
[2019-06-13] MEDS: LR 1,000 ML IV SCH (19:56)
[2019-06-13 20:12] LABS: FREE T4 1.27 NG/DL (0.76-1.46); THYROID STIMULATING HORMONE 2.46 uIU/ML (0.358-3.740)
[2019-06-13 20:30] VITALS: BP 140/90
[2019-06-13] MEDS ORDERED: LORazepam 2 MG/ML VIAL (J2060) As Ordered ONE (20:36)
[2019-06-13] MEDS: ONDANSETRON 4MG/2ML VIAL (J2405) IV PRN (20:44)
[2019-06-13 21:00] VITALS: BP 145/69
[2019-06-13] MEDS: sulfaSALAzine 500 MG TABEC PO SCH (21:13)
[2019-06-13] MEDS: CYPROHEPTADINE 4 MG TAB PO SCH (21:15)
[2019-06-13] MEDS: lamoTRIgine 25 MG TAB PO SCH (21:16)
[2019-06-13] MEDS: lamoTRIgine 100MG TAB PO SCH (21:16)
[2019-06-13 22:00] VITALS: BP 115/87
[2019-06-13 22:38] LABS: CALCIUM LEVEL 9.1 MG/DL (8.8-10.2); CREATININE FOR GFR 2.02 MG/DL (0.55-1.30); GLOMERULAR FILTRATION RATE 26.2 (>45); POTASSIUM SERUM 3.3 MEQ/L (3.5-5.1)
[2019-06-13 23:00] VITALS: BP 115/61
[2019-06-13] MEDS ORDERED: PREVNAR 13 VACCINE SYRINGE (CPT CODE:90670) IM PRN (23:15)
[2019-06-14] VITALS (10 sets, daily range): BP systolic 89–148; BP diastolic 52–87
[2019-06-14] MEDS ORDERED: POTASSIUM CHLORIDE 10 MEQ SR TABLET PO ONE
[2019-06-14] MEDS ORDERED: ACETAMINOPHEN TAB 650MG DOSE (2X325MG) PO ONE (00:15)
[2019-06-14] MEDS ORDERED: LORazepam 2 MG/ML VIAL (J2060) As Ordered ONE (00:21)
[2019-06-14] MEDS: LORazepam 2 MG/ML VIAL (J2060) IV PRN ×4 (00:24→22:17)
[2019-06-14] MEDS: LR 1,000 ML IV SCH ×4 (02:45→17:58)
[2019-06-14] MEDS: CYPROHEPTADINE 4 MG TAB PO SCH ×2 (05:08→14:32)
[2019-06-14] MEDS: LEVOTHYROXINE 50MCG TABLET (0.05MG) PO SCH (05:08)
[2019-06-14 05:30] LABS: HEMATOCRIT 35.4 % (36.0-47.0); MEAN CORPUSCULAR HEMOGLOBIN 32.3 pg (27.0-33.0); MEAN CORPUSCULAR HGB CONC 32.5 g/dl (32.0-36.5); MEAN CORPUSCULAR VOLUME 99.4 fl (80.0-96.0); PLATELET COUNT, AUTOMATED 160 10^3/uL (150-450); RED BLOOD COUNT 3.56 10^6/uL (4.00-5.40); WHITE BLOOD COUNT 5.7 10^3/uL (4.0-10.0)
[2019-06-14 05:48] LABS: HEMOGLOBIN 11.5 g/dl (12.0-15.5)
[2019-06-14 06:01] LABS: ALBUMIN 3.6 GM/DL (3.2-5.2); CREATININE FOR GFR 2.03 MG/DL (0.55-1.30); PHOSPHORUS LEVEL 3.5 MG/DL (2.5-4.9); POTASSIUM SERUM 4.3 MEQ/L (3.5-5.1)
[2019-06-14] MEDS: lamoTRIgine 25 MG TAB PO SCH (09:02)
[2019-06-14] MEDS: sulfaSALAzine 500 MG TABEC PO SCH ×2 (09:02→22:05)
[2019-06-14] MEDS: lamoTRIgine 100MG TAB PO SCH (09:03)
[2019-06-14] MEDS: amLODIPine 5 MG TAB PO SCH (09:04)
[2019-06-14] MEDS: ENOXAPARIN 40 MG/0.4 ML SYRINGE (J1650) SC SCH (09:05)
[2019-06-14] MEDS: PANTOPRAZOLE 40MG INJ (PROTONIX) (C9113) IV SCH (09:05)
--- NOTE | 2019-06-14 11:53 | IPNPDOC ---
Date Seen The patient was seen on 06/14/19. Progress Note SUBJECTIVE: Patient is fully alert and appears fairly comfortable, speaking in complete s entences. Tremors noted in all extremities. BP noted to drop to 89/57 overnight but had since come up. HR fluctuate 80-120. Patient was placed in ICU. OBJECTIVE PHYSICAL EXAMINATION: VITAL SIGNS: Please see below. General: Alert, obese, diffuse tremors Eyes: Normal sclera, EOMI HENT: Atraumatic Cardiovascular: Tachycardic, regular rhythm. Pulmonary: Clear to auscultation b/l, no wheezing GI: Soft, mild abdominal discomfort diffusely, no significant pain elicited. Skin: Warm and dry Neuro: CN grossly intact. Diffuse tremors in all extremities. Psych: oriented x 3 LABORATORY DATA, IMAGING STUDIES, MICROBIOLOGY: Please see below. DVT prophylaxis ordered?: lovenox Home Medications: - sulfasalazine 500 mg two tablets twice a day - rosuvastatin 10 mg daily - mirtazapine 30 mg at bedtime - Paxil 40 mg daily - Mirapex (pramipexole) 1 mg daily - Lamictal 150 mg twice a day - Protonix 20 mg daily - levothyroxine 50 mcg daily - Restasis eye drops - tizanidine 4 mg every 12 hours as needed for muscle spasms - amlodipine 5 mg daily ASSESSMENT AND PLAN: 1. Diffuse tremors - Initially suspected Serotonin syndrome although appear to be unlikely, discussed with Psych. Previously on Remeron, Paroxetine, Mirapex and tizanidine. - All had been discontinued. Would not resume Paroxetine on discharge, to follow up with Psych post discharge for any further medication changes. - Physical manifestation looks like tardive dyskinesia but does not appear to be on a typical or atypical antipsychotic. - Very mild leukocytosis 10.9 on arrival now had resolved. No clear source of infection suspected at this time. Urine no signs of infection. f/u blood culture s. - Neurology consulted for evaluation of tremors. 2. HTN - BP now controlled. Previously elevated follow by hypotensive overnight. - On only low dose Norvasc 5 mg daily, should not cause significant hypotension. - Monitor closely. Discontinue if BP remains low. 3. Hypothyroidism - c/w home dose synthroid. - Thyroid panel WNL. 4. HLD - Crestor held for musculoskeletal issues. 5. Depression with mood disorders - Has been on Remeron, Paxil, Mirapex, and tizanidine all had been held. Also on Lamictal for mood instability. - Consider resuming slowly except for Paxil. Remeron should not contribute to serotonin syndrome. 6. WM on CKD - Improving. c/w IVF hydration. - Monitor daily BMP. 7. Myeloid disorder? - s/p Bone marrow biopsy at [facility] 01/2019 showing hypercellular bone marrow, T cell increased blast. - Chromosome was normal. To continue follow with Heme/Onc post discharge. 8. KINGSLEY - c/w nightime CPAP at home settings. 9. Psoriatic arthritis- c/w sulfasalazine. DISPOSITION: Home once stable. VS, I&O, 24H, Fishbone Vital Signs/I&O Vital Signs Date Time Temp Pulse Resp B/P (MAP) Pulse Ox O2 Delivery O2 Flow Rate FiO2 06/14/19 09:04 112 104/67 06/14/19 07:00 98.4 16 93 NIPPV (BIPAP/CPAP) 06/14/19 06:38 1.0 I&O- Last 24 Hours up to 6 AM 06/14/19 06:00 Intake Total 2827.5 ml Output Total 600 ml Balance 2227.5 ml Laboratory Data 24H LABS Laboratory Tests 2 06/13/19 16:36: Immature Granulocyte % (Auto) 1.5, Neutrophils (%) (Auto) 70.9H, Lymphocytes (%) (Auto) 18.9L, Monocytes (%) (Auto) 7.9H, Eosinophils (%) (Auto) 0.3, Basophils (%) (Auto) 0.5, Neutrophils # (Auto) 7.8, Lymphocytes # (Auto) 2.1, Monocytes # (Auto) 0.9H, Eosinophils # (Auto) 0.0, Basophils # (Auto) 0.1, Nucleated Red Blood Cells % (auto) 0.0, Anion Gap 13, Glomerular Filtration Rate 20.7L, Calcium Level 10.2, Total Bilirubin 0.7, Direct Bilirubin 0.2, Aspartate Amino Transf (AST/SGOT) 43H, Alanine Aminotransferase (ALT/SGPT) 49, Alkaline Phosphatase 100, Total Creatine Kinase 212H, Creatine Kinase MB 4.1H, Creatine Kinase MB Relative Index 1.93, Troponin I 0.03, Total Protein 8.5H, Albumin 4.8, Albumin/Globulin Ratio 1.30, Lipase 100 06/13/19 19:21: Thyroid Stimulating Hormone (TSH) 2.460, Free Thyroxine 1.27 06/13/19 21:25: Urine Color YELLOW, Urine Appearance CLEAR, Urine pH 5.0, Urine Specific [place] 1.006, Urine Protein NEGATIVE, Urine Glucose (UA) NEGATIVE, Urine Ketones NEGATIVE, Urine Blood NEGATIVE, Urine Nitrite NEGATIVE, Urine Bilirubin NEGA TIVE, Urine Urobilinogen 0.2, Urine Leukocyte Esterase NEGATIVE, Urine WBC (Auto) 2, Urine RBC (Auto) 1, Urine Hyaline Casts (Auto) 0, Urine Bacteria (Auto) NEGATIVE, Urine Squamous Epithelial Cells 0, Urine Transitional Epithelial Cells <1, Urine Mucus (Auto) SMALL, Urine Sperm (Auto) 06/13/19 21:57: Anion Gap 10, Glomerular Filtration Rate 26.2L, Calcium Level 9.1 06/14/19 05:05: Nucleated Red Blood Cells % (auto) 0.0, Anion Gap 4L, Glomerular Filtration Rate 26.0L, Calcium Level 9.0, Phosphorus Level 3.5, Total Creatine Kinase 154, Albumin 3.6# CBC/BMP Laboratory Tests 06/13/19 16:36 06/13/19 21:57 06/14/19 05:05 DACIA RODRIGUEZ MD Jun 14, 2019 11:53
[2019-06-14] MEDS: ACETAMINOPHEN TAB 650MG DOSE (2X325MG) PO PRN ×2 (13:13→22:04)
[2019-06-14] MEDS: ONDANSETRON 4MG/2ML VIAL (J2405) IV PRN (13:13)
[2019-06-15] VITALS (7 sets, daily range): BP systolic 130–162; BP diastolic 60–90
[2019-06-15] MEDS: LR 1,000 ML IV SCH (00:29)
[2019-06-15 05:48] LABS: HEMATOCRIT 31.6 % (36.0-47.0); HEMOGLOBIN 9.9 g/dl (12.0-15.5); MEAN CORPUSCULAR HEMOGLOBIN 31.6 pg (27.0-33.0); MEAN CORPUSCULAR HGB CONC 31.3 g/dl (32.0-36.5); PLATELET COUNT, AUTOMATED 135 10^3/uL (150-450); RED BLOOD COUNT 3.13 10^6/uL (4.00-5.40); WHITE BLOOD COUNT 3.5 10^3/uL (4.0-10.0)
[2019-06-15 05:56] LABS: ALBUMIN 3.3 GM/DL (3.2-5.2); CALCIUM LEVEL 8.5 MG/DL (8.8-10.2); CREATININE FOR GFR 1.6 MG/DL (0.55-1.30); GLOMERULAR FILTRATION RATE 34.2 (>45); PHOSPHORUS LEVEL 2.8 MG/DL (2.5-4.9); POTASSIUM SERUM 3.7 MEQ/L (3.5-5.1)
[2019-06-15] MEDS: LEVOTHYROXINE 50MCG TABLET (0.05MG) PO SCH (06:05)
--- NOTE | 2019-06-15 07:15 | CR ---
DATE OF CONSULTATION: 06/14/2019 REFERRING PHYSICIAN: Dr. Hudson REASON FOR CONSULTATION: Severe tremor, nausea, imbalance and acute renal failure. HISTORY OF PRESENT ILLNESS: Maryam Baltazar is a 68-year-old woman who was hospitalized between 06/07/2019 - 06/10/2019 for acute kidney injury and hypotension. She was noted to have supine hypertension, but normal blood pressure when sitting or standing. She was seen for followup on 06/12/2019 at the office of her primary care physician and also saw nephrology who had started her on amlodipine. The patient states that she woke up yesterday morning and felt severe tremor of her arms and legs and even her trunk, chest and abdomen were shaking. She would not be able to hold anything. Ativan would help her tremor temporarily. For the last one week, she has also been experiencing headaches. She denies any neck or back pain. She has fallen a couple of times in the last 6-9 months. She felt nausea and vomiting since yesterday. She felt lightheadedness and imbalance. Her creatinine went up to 2.97 yesterday with GFR of 16.8. In August 2018, her creatinine was 1.16 and GFR was 49.8. On 06/09/2019, her creatinine was 1.2 and GFR was 46.8. PAST MEDICAL HISTORY: Lyme disease in July 2016. She developed Lyme meningitis, myocarditis and iritis. Chiari malformation per history. Chronic back and neck pain. The patient goes to the pain clinic for injections. Acid reflux. Chronic kidney disease. Sleep apnea on CPAP. Cholecystectomy. Rotator cuff injection. Appendectomy. Left knee surgery. Right hip replacement. Hematoma of right hip. Bilateral bunion repair. Sinus surgery. Bilateral carpal tunnel surgery. SOCIAL HISTORY: She denies smoking, alcohol or illicit drugs. FAMILY HISTORY: Father had cancer. Mother in her 60s. Sister had multiple myeloma, heart disease and stroke. REVIEW OF SYSTEMS: All systems were reviewed and found to be noncontributory except as mentioned in history of present illness. HOME MEDICATIONS: Lamictal 150 mg by mouth twice a day. Sulfasalazine 1000 mg by mouth twice a day. Crestor 10 mg by mouth daily. Remeron 30 mg by mouth at bedtime. Paxil 40 mg by mouth daily. Mirapex 1 mg by mouth daily. Protonix 20 mg by mouth daily. Levothyroxine 50 mcg by mouth daily. Tizanidine 4 mg by mouth every 12 hours. Amlodipine 5 mg by mouth daily. ALLERGIES: DOXEPIN. TETRACYCLINE. ESTRADIOL. ABILIFY. PHYSICAL EXAMINATION: Weight 86.3 kg. Height 5 feet 4 inches. Temperature 97.8. Pulse 115. Blood pressure 142/80. 94% saturation on room air. Heart: Regular rate and rhythm. Lungs: Clear to auscultation. Abdomen: Soft. Nontender. Nondistended. No pedal edema. No musculoskeletal abnormalities. No rash. No signs of meningeal irritation. No dysmetria. The patient has prominent tremor of arms and legs and at times her upper torso as well. The patient is awake, alert and oriented to place, person and time. Normal speech, comprehension and repetition. Extraocular muscles are intact. No facial weakness. Tongue and uvula are midline. No nystagmus. 5/5 strength in all four extremities. Deep tendon reflexes are 1+ in arms and knees and absent at ankles. Plantars are down going. She has normal sensation bilaterally in her arms and legs. No dysmetria. DIAGNOSTIC STUDIES: CT scan of her head was normal on 06/07/2019. Hemoglobin 11.5. Platelet count 160. ASSESSMENT: Lamictal toxicity causing Parkinsonism, tremor, nausea, vomiting and imbalance and Lamictal toxicity is being induced by acute kidney injury superimposed on chronic renal insufficiency. Lamictal is more than 90% cleared by kidneys and due to acute on chronic renal injury her Lamictal level in blood likely has doubled or tripled causing her symptoms. PLAN: 1. Discontinue Lamictal and if needs to be started for her mood disorder, restart at 50 mg by mouth twice a day on 06/17/2019. Her Lamictal level will slowly decrease and her kidney functions will be improving as well. If patient continues to go through fluctuations in her renal functions, her Lamictal level will fluctuate accordingly. She should start Lamictal 50 mg by mouth twice a day and patient can discuss with her psychiatrist ad terminal makeup operator benefits of lamotrigine. 2. My index of suspicion for serotonin syndrome is extremely low. The patient should talk to her psychiatrist about her medications including Paxil, mirtazapine and Lamictal.
[2019-06-15] MEDS: ENOXAPARIN 40 MG/0.4 ML SYRINGE (J1650) SC SCH (08:23)
[2019-06-15] MEDS: sulfaSALAzine 500 MG TABEC PO SCH ×2 (08:23→19:50)
[2019-06-15] MEDS: PANTOPRAZOLE 40MG INJ (PROTONIX) (C9113) IV SCH (08:23)
[2019-06-15] MEDS: amLODIPine 5 MG TAB PO SCH (08:24)
[2019-06-15] MEDS: ACETAMINOPHEN TAB 650MG DOSE (2X325MG) PO PRN (12:34)
--- NOTE | 2019-06-15 14:05 | IPNPDOC ---
Date Seen The patient was seen on 06/15/19. Progress Note SUBJECTIVE: Patient appears more comfortable today, tachycardia resolved. Afebrile overnight. Tremors improved noticably although still present. Had been seen by Neurology. Lamictal had been discontinued for likely toxicity. OBJECTIVE PHYSICAL EXAMINATION: VITAL SIGNS: Please see below. General: Alert, obese, diffuse tremors Eyes: Normal sclera, EOMI HENT: Atraumatic Cardiovascular: regular rate, regular rhythm. Pulmonary: Clear to auscultation b/l, no wheezing GI: Soft, mild abdominal discomfort diffusely, no significant pain elicited. Skin: Warm and dry Neuro: CN grossly intact. Diffuse tremors in all extremities. Psych: oriented x 3 LABORATORY DATA, IMAGING STUDIES, MICROBIOLOGY: Please see below. DVT prophylaxis ordered?: lovenox Home Medications: - sulfasalazine 500 mg two tablets twice a day - rosuvastatin 10 mg daily - mirtazapine 30 mg at bedtime - Paxil 40 mg daily - Mirapex (pramipexole) 1 mg daily - Lamictal 150 mg twice a day - Protonix 20 mg daily - levothyroxine 50 mcg daily - Restasis eye drops - tizanidine 4 mg every 12 hours as needed for muscle spasms - amlodipine 5 mg daily ASSESSMENT AND PLAN: 1. Diffuse tremors likely 2/2 Lamictal toxicity - Diffuse tremors in setting of impaired kidney function. Evaluated by neurology, lamictal discontinued. - Initially suspected Serotonin syndrome although appear to be unlikely, discussed with Psych. Previously on Remeron, Paroxetine, Mirapex and tizanidine. - Continue holding lamictal and continue to supportive care. Likely can be be d/c tomorrow if tremors continue to improve, evaluated and cleared by PT today. 2. HTN - BP now controlled. Previously elevated follow by hypotensive overnight. - On only low dose Norvasc 5 mg daily. 3. Hypothyroidism - c/w home dose synthroid. - Thyroid panel WNL. 4. HLD - Crestor held for musculoskeletal issues. 5. Depression with mood disorders - Has been on Remeron, Paxil, Mirapex, and tizanidine all had been held. Also on Lamictal for mood instability. - Consider resuming slowly except for Paxil. Remeron should not contribute to serotonin syndrome. 6. WM on CKD - Improving. c/w IVF hydration. - Monitor daily BMP. 7. Myeloid disorder? - s/p Bone marrow biopsy at [facility] 01/2019 showing hypercellular bone marrow, T cell increased blast. - Chromosome was normal. To continue follow with Heme/Onc post discharge. 8. KINGSLEY - c/w nightime CPAP at home settings. 9. Psoriatic arthritis- c/w sulfasalazine. DISPOSITION: Home once stable. VS, I&O, 24H, Fishbone Vital Signs/I&O Vital Signs Date Time Temp Pulse Resp B/P (MAP) Pulse Ox O2 Delivery O2 Flow Rate FiO2 06/15/19 12:00 98.9 98 18 140/85 (103) 92 Room Air 06/14/19 06:38 1.0 I&O- Last 24 Hours up to 6 AM 06/15/19 06:00 Intake Total 5370 ml Output Total 450 ml Balance 4920 ml Laboratory Data 24H LABS Laboratory Tests 2 06/15/19 05:05: Nucleated Red Blood Cells % (auto) 0.0, Anion Gap 2L, Glomerular Filtration Rate 34.2L, Calcium Level 8.5L, Phosphorus Level 2.8, Albumin 3.3 CBC/BMP Laboratory Tests 06/15/19 05:05 Microbiology Microbiology 06/14/19 Blood Culture - Preliminary, Resulted No growth after 24 hours . All specim... 06/14/19 Blood Culture - Preliminary, Resulted No growth after 24 hours . All specim... DACIA RODRIGUEZ MD Jun 15, 2019 14:05
[2019-06-16] VITALS (7 sets, daily range): BP systolic 139–180; BP diastolic 80–110
[2019-06-16] MEDS: LEVOTHYROXINE 50MCG TABLET (0.05MG) PO SCH (05:28)
[2019-06-16 06:11] LABS: HEMATOCRIT 33.1 % (36.0-47.0); HEMOGLOBIN 10.5 g/dl (12.0-15.5); MEAN CORPUSCULAR HEMOGLOBIN 31.7 pg (27.0-33.0); MEAN CORPUSCULAR HGB CONC 31.7 g/dl (32.0-36.5); PLATELET COUNT, AUTOMATED 145 10^3/uL (150-450); RED BLOOD COUNT 3.31 10^6/uL (4.00-5.40); WHITE BLOOD COUNT 4.3 10^3/uL (4.0-10.0)
[2019-06-16 06:21] LABS: ALBUMIN 3.6 GM/DL (3.2-5.2); CALCIUM LEVEL 8.5 MG/DL (8.8-10.2); CREATININE FOR GFR 1.4 MG/DL (0.55-1.30); GLOMERULAR FILTRATION RATE 39.9 (>45); PHOSPHORUS LEVEL 3.2 MG/DL (2.5-4.9); POTASSIUM SERUM 3.4 MEQ/L (3.5-5.1)
[2019-06-16] MEDS ORDERED: POTASSIUM CHLORIDE 10 MEQ SR TABLET PO ONE (08:00)
[2019-06-16] MEDS: ACETAMINOPHEN TAB 650MG DOSE (2X325MG) PO PRN ×3 (08:22→23:58)
[2019-06-16] MEDS: sulfaSALAzine 500 MG TABEC PO SCH ×2 (08:23→20:01)
[2019-06-16] MEDS: PANTOPRAZOLE 40MG INJ (PROTONIX) (C9113) IV SCH (08:23)
[2019-06-16] MEDS: ENOXAPARIN 40 MG/0.4 ML SYRINGE (J1650) SC SCH (08:23)
[2019-06-16] MEDS: amLODIPine 10 MG TAB PO SCH (09:54)
[2019-06-16] MEDS: ONDANSETRON 4MG/2ML VIAL (J2405) IV PRN ×2 (10:07→16:09)
--- NOTE | 2019-06-16 11:00 | IPNPDOC ---
Date Seen The patient was seen on 06/16/19. Progress Note SUBJECTIVE: Patient is even less tremulous today, hemodynamically stable. Afebrile overnight. Initially planned for discharge this morning, patient appeared very concern about her discharge and frustrated about her symptoms. Although her initial presenting symptoms were severe tremors which had mostly resolved and treated, her chronic symptoms are persistent. She reports feeling sick to her stomach, generalized malaise, headaches, feeling ill for reportedly months now. Stated that she hasn't been the same since her Lyme disease. She states that she cannot eat her food without throwing up and feel very nauseous now. Although symptoms are not new, but has been worse for the past few days. OBJECTIVE PHYSICAL EXAMINATION: VITAL SIGNS: Please see below. General: Alert, obese, minimal diffuse tremors, weak Eyes: Normal sclera, EOMI HENT: Atraumatic Cardiovascular: regular rate, regular rhythm. Pulmonary: Clear to auscultation b/l, no wheezing GI: Soft, nontender, nondistended Skin: Warm and dry Neuro: CN grossly intact. Diffuse tremors in all extremities. Psych: oriented x 3 LABORATORY DATA, IMAGING STUDIES, MICROBIOLOGY: Please see below. DVT prophylaxis ordered?: lovenox Home Medications: - sulfasalazine 500 mg two tablets twice a day - rosuvastatin 10 mg daily - mirtazapine 30 mg at bedtime - Paxil 40 mg daily - Mirapex (pramipexole) 1 mg daily - Lamictal 150 mg twice a day - Protonix 20 mg daily - levothyroxine 50 mcg daily - Restasis eye drops - tizanidine 4 mg every 12 hours as needed for muscle spasms - amlodipine 5 mg daily ASSESSMENT AND PLAN: 1. Diffuse tremors likely 2/2 Lamictal toxicity - Diffuse tremors in setting of impaired kidney function. Evaluated by neurology, lamictal discontinued. - Initially suspected Serotonin syndrome although appear to be unlikely, discussed with Psych. Previously on Remeron, Paroxetine, Mirapex and tizanidine. - Continue holding lamictal and continue to supportive care. - Cleared by PT for home safety discharge but patient reports feeling very ill/w eak to walk any substantial distance. 2. HTN - BP elevated. Increase norvasc to 10 mg daily. 3. Hypothyroidism - c/w home dose synthroid. - Thyroid panel WNL. 4. HLD - Crestor held for musculoskeletal issues. 5. Depression with mood disorders - Has been on Remeron, Paxil, Mirapex, and tizanidine all had been held. Also on Lamictal for mood instability. - Consider resuming slowly except for Paxil. Remeron should not contribute to serotonin syndrome. 6. WM on CKD - Improving. c/w IVF hydration. - Monitor daily BMP. 7. Myeloid disorder? - s/p Bone marrow biopsy at [facility] 01/2019 showing hypercellular bone marrow, T cell increased blast. - Chromosome was normal. To continue follow with Heme/Onc post discharge. 8. KINGSLEY - c/w nightime CPAP at home settings. 9. Psoriatic arthritis- c/w sulfasalazine. 10. Generalized fatigue/ill/weakness - Cancer vs. residual from Lyme disease/meningitis and less likely infectious - Has been afebrile, no leukocytosis. - Blood cultures are negative to date. - Supportive care, Zofran for nausea, tylenol for headaches. Reported history of headaches but has been more frequent over the past months. - Stated that she has not feel normal again since being treated for Lyme and meningitis. Suspect may be residential sequela of disease. - Discharge once patient more comfortable and able to tolerate PO, planning for next 24-48 hours if possible. - Obtain viral panel swab. DISPOSITION: Home once stable. VS, I&O, 24H, Fishbone Vital Signs/I&O Vital Signs Date Time Temp Pulse Resp B/P (MAP) Pulse Ox O2 Delivery O2 Flow Rate FiO2 06/16/19 09:54 85 180/110 06/16/19 08:00 98.4 18 96 Room Air 06/14/19 06:38 1.0 I&O- Last 24 Hours up to 6 AM 06/16/19 06:00 Intake Total 1200 ml Output Total 200 ml Balance 1000 ml Laboratory Data 24H LABS Laboratory Tests 2 06/16/19 05:48: Nucleated Red Blood Cells % (auto) 0.0, Anion Gap 1L, Glomerular Filtration Rate 39.9L, Calcium Level 8.5L, Phosphorus Level 3.2, Albumin 3.6 CBC/BMP Laboratory Tests 06/16/19 05:48 Microbiology Microbiology 06/14/19 Blood Culture - Preliminary, Resulted No growth after 24 hours . All specim... 06/14/19 Blood Culture - Preliminary, Resulted No growth after 24 hours . All specim... DACIA RODRIGUEZ MD Jun 16, 2019 11:00
[2019-06-16] MEDS: LORazepam 2 MG/ML VIAL (J2060) IV PRN (21:27)
[2019-06-17] VITALS (9 sets, daily range): BP systolic 140–178; BP diastolic 80–110
[2019-06-17] MEDS: LEVOTHYROXINE 50MCG TABLET (0.05MG) PO SCH (05:03)
[2019-06-17] MEDS ORDERED: amLODIPine 5 MG TAB PO ONE (05:30)
[2019-06-17 05:55] LABS: HEMATOCRIT 32.9 % (36.0-47.0); HEMOGLOBIN 10.6 g/dl (12.0-15.5); MEAN CORPUSCULAR HEMOGLOBIN 31.8 pg (27.0-33.0); MEAN CORPUSCULAR HGB CONC 32.2 g/dl (32.0-36.5); MEAN CORPUSCULAR VOLUME 98.8 fl (80.0-96.0); PLATELET COUNT, AUTOMATED 139 10^3/uL (150-450); RED BLOOD COUNT 3.33 10^6/uL (4.00-5.40); WHITE BLOOD COUNT 3.3 10^3/uL (4.0-10.0)
[2019-06-17 06:17] LABS: ALBUMIN 3.4 GM/DL (3.2-5.2); CALCIUM LEVEL 8.8 MG/DL (8.8-10.2); CREATININE FOR GFR 1.33 MG/DL (0.55-1.30); GLOMERULAR FILTRATION RATE 42.4 (>45); PHOSPHORUS LEVEL 3.7 MG/DL (2.5-4.9); POTASSIUM SERUM 3.9 MEQ/L (3.5-5.1)
[2019-06-17] MEDS: ONDANSETRON 4MG/2ML VIAL (J2405) IV PRN (06:57)
[2019-06-17] MEDS ORDERED: LORazepam 2 MG/ML VIAL (J2060) As Ordered ONE ×2 (07:34→14:27)
[2019-06-17] MEDS: LORazepam 2 MG/ML VIAL (J2060) IV PRN ×2 (07:58→14:37)
[2019-06-17] MEDS: LABETALOL HCL 100 MG/20 ML VIAL IV PRN ×3 (08:00→20:34)
[2019-06-17] MEDS: PANTOPRAZOLE 40MG INJ (PROTONIX) (C9113) IV SCH (08:38)
[2019-06-17] MEDS: amLODIPine 10 MG TAB PO SCH (08:38)
[2019-06-17] MEDS: sulfaSALAzine 500 MG TABEC PO SCH ×2 (08:38→20:34)
[2019-06-17] MEDS: ACETAMINOPHEN TAB 650MG DOSE (2X325MG) PO PRN ×2 (08:39→16:50)
[2019-06-17] MEDS: ENOXAPARIN 40 MG/0.4 ML SYRINGE (J1650) SC SCH (08:40)
--- NOTE | 2019-06-17 11:07 | IPNPDOC ---
Date Seen The patient was seen on 06/17/19. Progress Note SUBJECTIVE: Patient appear comfortable this morning. Still having intermittent chronic headaches with slight tremor. BP noted to be elevated overnight/AM 170/110. Metoprolol added. OBJECTIVE PHYSICAL EXAMINATION: VITAL SIGNS: Please see below. General: Alert, obese, minimal diffuse tremors, weak Eyes: Normal sclera, EOMI HENT: Atraumatic Cardiovascular: regular rate, regular rhythm. Pulmonary: Clear to auscultation b/l, no wheezing GI: Soft, nontender, nondistended Skin: Warm and dry Neuro: CN grossly intact. Diffuse tremors in all extremities. Psych: oriented x 3 LABORATORY DATA, IMAGING STUDIES, MICROBIOLOGY: Please see below. DVT prophylaxis ordered?: lovenox Home Medications: - sulfasalazine 500 mg two tablets twice a day - rosuvastatin 10 mg daily - mirtazapine 30 mg at bedtime - Paxil 40 mg daily - Mirapex (pramipexole) 1 mg daily - Lamictal 150 mg twice a day - Protonix 20 mg daily - levothyroxine 50 mcg daily - Restasis eye drops - tizanidine 4 mg every 12 hours as needed for muscle spasms - amlodipine 5 mg daily ASSESSMENT AND PLAN: 1. Diffuse tremors likely 2/2 Lamictal toxicity - Diffuse tremors in setting of impaired kidney function. Evaluated by neurology, lamictal discontinued. - Initially suspected Serotonin syndrome although appear to be unlikely, discussed with Psych. Previously on Remeron, Paroxetine, Mirapex and tizanidine. - Continue holding lamictal and continue to supportive care. - Cleared by PT for home safety discharge but patient reports feeling very ill/weak to walk any substantial distance. 2. HTN - BP elevated. Was on a number of medications previously including Toprol XL 100 daily, losartan 10mg BID, chlorthalidone 25mg, and norvasc 5 mg daily. - All was taken off apart from norvasc prior to this admission due to hypotension. - BP had since steadily increase, Norvasc is increased to 10mg daily, and Toprol is re-initiated. Will re-start these meds one at a time to avoid hypotension as patient has been getting periodically. - Follows with nephrology as outpatient. 3. Hypothyroidism - c/w home dose synthroid. - Thyroid panel WNL. 4. HLD - Crestor held for musculoskeletal issues. 5. Depression with mood disorders - Has been on Remeron, Paxil, Mirapex, and tizanidine all had been held. Also on Lamictal for mood instability. - Consider resuming slowly except for Paxil. Remeron should not contribute to serotonin syndrome. 6. WM on CKD - Improving. c/w IVF hydration. - Monitor daily BMP. 7. Myeloid disorder? - s/p Bone marrow biopsy at [facility] 01/2019 showing hypercellular bone marrow, T cell increased blast. - Chromosome was normal. To continue follow with Heme/Onc post discharge. 8. KINGSLEY - c/w nightime CPAP at home settings. 9. Psoriatic arthritis- c/w sulfasalazine. 10. Generalized fatigue/ill/weakness - Cancer vs. residual from Lyme disease/meningitis and less likely infectious - Has been afebrile, no leukocytosis. - Blood cultures are negative to date. - Supportive care, Zofran for nausea, tylenol for headaches. Reported history of headaches but has been more frequent over the past months. - Stated that she has not feel normal again since being treated for Lyme and meningitis. Suspect may be senior care sequela of disease. - Discharge once patient more comfortable and able to tolerate PO, planning for next 24-48 hours if possible. - Obtain viral panel swab. DISPOSITION: Home once stable. VS, I&O, 24H, Fishbone Vital Signs/I&O Vital Signs Date Time Temp Pulse Resp B/P (MAP) Pulse Ox O2 Delivery O2 Flow Rate FiO2 06/17/19 08:41 140/90 (107) 06/17/19 08:38 77 06/17/19 08:00 98.0 18 92 Room Air 06/14/19 06:38 1.0 I&O- Last 24 Hours up to 6 AM 06/17/19 06:00 Intake Total 1860 ml Output Total 0 ml Balance 1860 ml Laboratory Data 24H LABS Laboratory Tests 2 06/17/19 05:39: Nucleated Red Blood Cells % (auto) 0.0, Anion Gap 3L, Glomerular Filtration Rate 42.4L, Calcium Level 8.8, Phosphorus Level 3.7, Albumin 3.4 CBC/BMP Laboratory Tests 06/17/19 05:39 Microbiology Microbiology 06/16/19 Respiratory Virus Panel (PCR) (DAVE) - Final, Complete 06/14/19 Blood Culture - Preliminary, Resulted No Growth after 48 hours. All Specime... 06/14/19 Blood Culture - Preliminary, Resulted No Growth after 48 hours. All Specime... DACIA RODRIGUEZ MD Jun 17, 2019 11:07
[2019-06-17] MEDS: METOPROLOL SUCC (TopROL XL) 50MG **XL** TAB PO SCH (11:27)
[2019-06-17] MEDS: PARoxetine 20 MG TAB PO SCH (13:26)
[2019-06-17] MEDS ORDERED: SLF 3 ML SYR IV PRN (17:00)
[2019-06-17] MEDS ORDERED: METOCLOPRAMIDE INJ 10MG/2ML VIAL (J2765) IV PRN (19:15)
[2019-06-17] MEDS: SLF 3 ML SYR IV SCH (20:35)
[2019-06-17] MEDS ORDERED: MIRTAZAPINE 15 MG TAB PO SCH (21:00)
[2019-06-18] VITALS: BP 142/96
[2019-06-18 03:58] LABS: HEMATOCRIT 32.8 % (36.0-47.0); HEMOGLOBIN 10.2 g/dl (12.0-15.5); MEAN CORPUSCULAR HEMOGLOBIN 31.4 pg (27.0-33.0); MEAN CORPUSCULAR HGB CONC 31.1 g/dl (32.0-36.5); MEAN CORPUSCULAR VOLUME 100.9 fl (80.0-96.0); PLATELET COUNT, AUTOMATED 162 10^3/uL (150-450); RED BLOOD COUNT 3.25 10^6/uL (4.00-5.40); WHITE BLOOD COUNT 4.8 10^3/uL (4.0-10.0)
[2019-06-18 04:00] VITALS: BP 140/70
[2019-06-18 04:19] LABS: ALBUMIN 3.2 GM/DL (3.2-5.2); CALCIUM LEVEL 8.4 MG/DL (8.8-10.2); CREATININE FOR GFR 1.36 MG/DL (0.55-1.30); GLOMERULAR FILTRATION RATE 41.3 (>45); PHOSPHORUS LEVEL 3.8 MG/DL (2.5-4.9); POTASSIUM SERUM 3.9 MEQ/L (3.5-5.1)
[2019-06-18] MEDS: LEVOTHYROXINE 50MCG TABLET (0.05MG) PO SCH (05:15)
[2019-06-18] MEDS: SLF 3 ML SYR IV SCH (05:15)
[2019-06-18 08:00] VITALS: BP 135/89
[2019-06-18] MEDS: PARoxetine 20 MG TAB PO SCH (09:00)
[2019-06-18] MEDS: ENOXAPARIN 40 MG/0.4 ML SYRINGE (J1650) SC SCH (09:00)
[2019-06-18] MEDS: PANTOPRAZOLE 40MG INJ (PROTONIX) (C9113) IV SCH (09:00)
[2019-06-18] MEDS: METOPROLOL SUCC (TopROL XL) 50MG **XL** TAB PO SCH (09:01)
[2019-06-18] MEDS: ACETAMINOPHEN TAB 650MG DOSE (2X325MG) PO PRN (09:02)
[2019-06-18] MEDS: sulfaSALAzine 500 MG TABEC PO SCH (09:02)
[2019-06-18 09:03] VITALS: BP 135/89
[2019-06-18] MEDS: amLODIPine 10 MG TAB PO SCH (09:03)
[2019-06-18] MEDS ORDERED: AMLO10TA5 PO (09:14)
[2019-06-18] MEDS ORDERED: TOPR100T PO (09:14)
[2019-06-18] MEDS ORDERED: VENTAER INH (09:19)
[2019-06-18] MEDS ORDERED: PARO20TA3 PO (09:29)
[2019-06-18] MEDS ORDERED: ALBUTEROL 90 MCG/ACT 8GM HFA INHALER INH PRN (09:30)
--- NOTE | 2019-06-18 09:37 | DS.PDOC ---
Discharge Summary General Date of Admission Jun 13, 2019 at 18:41 Date of Discharge 06/18/2019 Discharge Summary PROCEDURES PERFORMED DURING STAY: [None]. ADMITTING DIAGNOSES: 1. Suspected Serotonin syndrome 2. HTN 3. Hypothyroidism 4. HLD 5. Psoriatic arthritis 6. Hypercalcemia 7. WM DISCHARGE DIAGNOSES: 1. Tremors 2/2 Likely lamictal toxicity and less likely Serotonin syndrome 2. HTN 3. Hypothyroidism 4. HLD 5. Psoriatic arthritis 6. Hypercalcemia 7. WM COMPLICATIONS/CHIEF COMPLAINT: Serotonin Syndrome. HISTORY OF PRESENT ILLNESS: - From Dr. Anderson's H&P "Maryam Baltazar is a 68-year-old patient of the [facility]. Her primary care provider is HEMANT Jain. She was just seen yesterday on 06/12/2019 for a hospital followup after recently being hospi talized earlier in the week for acute kidney injury. She was admitted 06/07/2019 though 06/10/2019 for hypotension. She was seen by cardiology then and had an echocardiogram that was essentially normal for age (summarized below). She was noticed to have supine hypertension with elevated blood pressures supine but normal blood pressures when she was sitting or standing. She was discharged on no antihypertensives. It appears that when she was seen in the clinic on 06/12/2019 she had been started on amlodipine 5 mg daily by nephrology. She has been noticed to have intermittent episodes of tachycardia with heart rates up to 120. She has had muscle cramping in the hands, feet, lower extremities, and had a headache when she was seen yesterday as well. Laboratories were drawn and these showed that she was in acute kidney injury with a creatinine of 2.97 (baseline 1.6) and also was hypercalcemic." HOSPITAL COURSE: Patient was admitted for suspected serotonin syndrome with diffuse severe tremors and labile BP. A number of medications were held and reviewed, it appears that serotonin syndrome is unlikely has Paroxetine 40mg does not seem to interact with other medications. She was evaluated by neurology given persistence of symptoms and suspect that it as due to Lamictal toxicity, which patient is on for mood disorder. Lamictal was held and supportive care was continued and patient appear to have returned to her baseline. She is on a number of medications for spasticity, and it looks like she does have some low level chronic spasicity. A number of nonspecific complaints were raised after her severe tremors improved including headaches, overall "sick to her stomach" and not feeling well. However, she states that this has been ongoing for months and have been to various hospitals many times. It appears that her current symptoms are not acute and has been ongoing for months or possibly years. She stated that she had a history of meningitis and lyme disease several years back at treated at a different facility and have not been the same since then. Difficult to ascertain chronicity and timeline of her symptoms and what specific symptoms there are. She did have a head CT done on 06/07/2019 recently with no acute abnormalities. Her paxil are reintroduced at a lower dose along with remeron and other medications as patient may have some SSRI withdrawal. No evidence of infection noted, patient remained afebrile, negative blood cultures, respiratory panel, no leukocytosis. Discussed with Dr. Guido with heme/onc who had seen her for MDS workup, does not seem to have evidence of MDS although gene panel had not been done. She was supposed to see Dr. Martines for workup but did not go through evaluation as she was sent here from his office for severe tremors. Her symptoms appear to have improved significantly and likely back at her baseline with minimal muscle spasms. She is fully alert and oriented and appear comfortable. Patient to be discharged to f/u PMD, Onc, Psych, and cardiology. She noted to have minimal wheezing this AM although does not report SOB and has good saturation on room air, may benefit from pulm consult vs. PFT through PMD to evaluate for Asthma vs. COPD in setting of previous smoking history. Another problem that was addressed during this visit is BP variability. Patient was previously on a number of different BP medications but had been discontinued because of hypotension and was on only norvasc 5mg daily when she came in. Previously on toprol XL 100 daily, losartan 10 mg BID, chlorthalidone 25 mg and norvasc 5 daily. Patient did have an episode of borderline hypotension of high 80s systolic at one point during hospitalization but had since been persistently hypertensive to 170/110. Norvasc was up to 10 mg daily and metoprolol resumed. Due to known variability, patient to be discharged with only norvasc and metopr olol at this time. If patient is still hypertensive, other medications can be resumed by PMD slowly. All plans explained to patient in detail. DISCHARGE MEDICATIONS: Please see below. ALLERGIES: Please see below. PHYSICAL EXAMINATION ON DISCHARGE: VITAL SIGNS: Please see below. General: Alert, obese, minimal diffuse tremors, weak Eyes: Normal sclera, EOMI HENT: Atraumatic Cardiovascular: regular rate, regular rhythm. Pulmonary: Clear to auscultation b/l, no wheezing GI: Soft, nontender, nondistended Skin: Warm and dry Neuro: CN grossly intact. Diffuse tremors in all extremities. Psych: oriented x 3 LABORATORY DATA: Please see below. IMAGING: None ACTIVITY: [As tolerated]. DIET: Regular DISCHARGE PLAN: Resume remeron. Resume paxil at lower dose. f/u Psych as soon as possible to re-evaluate medications. f/u PMD, cardiology, oncology, nephrology. Consider PFT to evaluate for possible undiagnosed Asthma vs. COPD Monitor BP slowly to avoid hypotension. Need mediation adjustment, may need more added with BP uncontrolled. DISPOSITION: Home. DISCHARGE INSTRUCTIONS: Resume remeron. Resume paxil at lower dose. f/u Psych as soon as possible to re-evaluate medications. f/u PMD, cardiology, oncology, nephrology. Consider PFT to evaluate for possible undiagnosed Asthma vs. COPD Monitor BP slowly to avoid hypotension. Need mediation adjustment, may need more added with BP uncontrolled. ITEMS TO FOLLOWUP ON ON OUTPATIENT: Final blood cultures. DISCHARGE CONDITION: [Stable]. TIME SPENT ON DISCHARGE: 40 minutes. Vital Signs/I&Os Vital Signs Date Time Temp Pulse Resp B/P (MAP) Pulse Ox O2 Delivery O2 Flow Rate FiO2 06/18/19 09:03 67 135/89 06/18/19 08:00 97.7 18 94 Room Air 06/14/19 06:38 1.0 I&O- Last 24 Hours up to 6 AM 06/18/19 06:00 Intake Total 1890 ml Output Total 1450 ml Balance 440 ml Laboratory Data Labs 24H Laboratory Tests 2 06/18/19 03:34: Nucleated Red Blood Cells % (auto) 0.4H, Anion Gap 2L, Glomerular Filtration Rate 41.3L, Calcium Level 8.4L, Phosphorus Level 3.8, Albumin 3.2 CBC/BMP Laboratory Tests 06/18/19 03:34 Microbiology Microbiology 06/16/19 Respiratory Virus Panel (PCR) (DAVE) - Final, Complete 06/14/19 Blood Culture - Preliminary, Resulted No Growth after 72 hours. All specime... 06/14/19 Blood Culture - Preliminary, Resulted No Growth after 72 hours. All specime... Discharge Medications Scheduled Amlodipine Besylate (Amlodipine Besylate) 10 Mg Tablet, 10 MG PO DAILY Calcium Carbonate/Vitamin D3 (Calcium 600 + Vit D 400 Softgl) 1 Each Capsule, 1 CAP PO QHS, (Reported) Levothyroxine Sodium (Levothyroxine Sodium) 50 Mcg Tablet, 50 MCG PO DAILY, (Reported) Metoprolol Succinate (Toprol Xl) 100 Mg Tab.er.24h, 100 MG PO DAILY Mirtazapine (Remeron) 30 Mg Tablet, 30 MG PO QHS, (Reported) Pantoprazole Sodium (Pantoprazole Sodium) 20 Mg Tablet.dr, 20 MG PO DAILY, (Reported) Paroxetine HCl (Paroxetine HCl) 20 Mg Tablet, 20 MG PO DAILY Pramipexole Di-HCl (Pramipexole Dihydrochloride) 1 Mg Tablet, 1 MG PO QHS, (Reported) Rosuvastatin Calcium (Rosuvastatin Calcium) 10 Mg Tablet, 10 MG PO QHS, (Reported) Sulfasalazine (Sulfasalazine) 500 Mg Tablet, 1,000 MG PO BID, (Reported) Scheduled PRN Albuterol Sulfate (Ventolin Hfa) 18 Gm Hfa.aer.ad, 2 PUFF INH Q4-6HP PRN for wheezing Tizanidine HCl (Tizanidine HCl) 4 Mg Tablet, 4 MG PO BID PRN for MUSCLE SPASMS, (Reported) Allergies Coded Allergies: tetracycline (Verified Allergy, Mild, rash/diarrhea, 06/07/19) aripiprazole (Verified Adverse Reaction, Mild, weakness, "made me dopey", 04/16/19) estradiol (Verified Adverse Reaction, Mild, hyper, 04/16/19) DACIA RODRIGUEZ MD Jun 18, 2019 09:37
[2019-06-18] MEDS: LORazepam 2 MG/ML VIAL (J2060) IV PRN (11:03)
[2019-06-18 12:00] VITALS: BP 148/104
== END 2019-06-18 12:55 | disposition home or self-care (01) | DRG 57 ==
LOC: M ED 16:13 → M ED INP 18:41 → ENRESERVTM 19:23 → ENRESERVDT 19:23 → M ICU 20:20 → M PCU 06-14 15:48
PROVIDERS: ADMIT Family Medicine; ATTEND Student in an Organized Health Care Education/Training Program
DX: G21.19 Other drug induced secondary parkinsonism (principal); N17.9 Acute kidney failure, unspecified; R25.1 Tremor, unspecified; T50.995A Adverse effect of other drugs, medicaments and biological substances, initial encounter; E83.52 Hypercalcemia; I12.9 Hypertensive chronic kidney disease with stage 1 through stage 4 chronic kidney disease, or unspecified chronic kidney disease; B94.9 Sequelae of unspecified infectious and parasitic disease; E03.9 Hypothyroidism, unspecified; L40.50 Arthropathic psoriasis, unspecified; Z87.891 Personal history of nicotine dependence; I95.9 Hypotension, unspecified; Z79.899 Other long term (current) drug therapy; Z88.8 Allergy status to other drugs, medicaments and biological substances; K21.9 Gastro-esophageal reflux disease without esophagitis; N18.3 Chronic kidney disease, stage 3 (moderate); M54.5 Low back pain; M54.2 Cervicalgia; G47.33 Obstructive sleep apnea (adult) (pediatric); Z96.641 Presence of right artificial hip joint; Z96.652 Presence of left artificial knee joint; E78.5 Hyperlipidemia, unspecified

== ENCOUNTER → 2019-07-13 | Outpatient (CLI) | payer MEDICARE, BC ==
[~2019-07-13] MED LIST changes: +AMLO10TA5 PO; +AMLO5TAB6 PO; +PARO20TA3 PO; +TOPR100T PO; +VENTAER INH
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
== END ==
LOC: M TMPAIN 10:00 → M PAIN 10:00
PROVIDERS: ATTEND Nurse Practitioner Family
DX: M47.816 Spondylosis without myelopathy or radiculopathy, lumbar region (principal); Z79.899 Other long term (current) drug therapy; Z88.8 Allergy status to other drugs, medicaments and biological substances; Z87.891 Personal history of nicotine dependence

== ENCOUNTER → 2019-08-09 | Outpatient (CLI) | payer MEDICARE, BC ==
[~2019-08-09] MED LIST changes: +PROHANCE 279.3MG/ML 15ML VIAL As Ordered ONE; +PROHANCE 279.3MG/ML 5ML VIAL As Ordered ONE
--- NOTE | 2019-08-09 12:56 | REP ---
MRI brain without and with contrast: Attention posterior fossa. History: Vertigo and tinnitus . Comparison study: Comparison MRI study of the brain is from May 31, 2011. Comparison CT study of the brain is from June 06/2020. Technique: Axial and sagittal imaging planes are utilized for T1 and T2-weighted scans. Sequences include spin-echo, fast spin echo, FLAIR, and diffusion weighted sequences. Thin-section T1 and T2-weighted scans are obtained through the posterior fossa. MRI findings: No bony calvarial lesion is seen. Craniocervical junction and upper cervical cord are normal in appearance. There is no MR evidence of significant paranasal sinus disease. No intraorbital abnormality is seen. There is an empty sella configuration to the sella turcica. No intra sellar or suprasellar mass lesion is seen. The lateral, third, and fourth ventricles are normal in size and position. Daniel-white differentiation pattern is intact above and below the tentorium. There are minimal small vessel atherosclerotic changes. Slightly more prominent than on the prior study from 2011. There is no evidence of intracranial hemorrhage. No mass, infarction, extra-axial fluid collection or midline shift is seen. No abnormal white matter lesion is seen. Thin sections through the posterior fossa demonstrate normal internal auditory canals. Normal seventh and eighth nerves are seen within the IACs. Postcontrast images show no abnormal intercanalicular or extra canalicular enhancement. There is no evidence of CP angle cistern mass. Whole brain postcontrast images show no abnormal contrast enhancement. Impression: Negative brain MRI study, without and with IV contrast. No posterior fossa abnormality. Electronically Signed by Anirudh Tejada MD 08/09/2019 12:47 P
== END ==
LOC: M RAD 10:54
PROVIDERS: ATTEND Family Medicine
DX: R42 Dizziness and giddiness (principal); H93.13 Tinnitus, bilateral
CPT/HCPCS: 70553; A9576

== ENCOUNTER → 2019-08-17 | Outpatient (REF) | payer MEDICARE, BC ==
[~2019-08-17] MED LIST changes: -PROHANCE 279.3MG/ML 15ML VIAL As Ordered ONE; -PROHANCE 279.3MG/ML 5ML VIAL As Ordered ONE
[2019-08-17 11:30] LABS: BASO % 0.4 % (0.0-1.0); EOS % 0.4 % (0.0-3.0); HEMATOCRIT 41.6 % (36.0-47.0); HEMOGLOBIN 13.7 g/dl (12.0-15.5); LYMPH # 1.4 10^3/uL (1.5-5.0); LYMPH % 12.9 % (24.0-44.0); MEAN CORPUSCULAR HGB CONC 32.9 g/dl (32.0-36.5); MEAN CORPUSCULAR VOLUME 94.1 fl (80.0-96.0); MONO # 1.1 10^3/uL (0.0-0.8); MONO % 10.7 % (0.0-5.0); NEUTROPHILS # 7.9 10^3/uL (1.5-8.5); NEUTROPHILS % 74.3 % (36.0-66.0); PLATELET COUNT, AUTOMATED 294 10^3/uL (150-450); RED BLOOD COUNT 4.42 10^6/uL (4.00-5.40); WHITE BLOOD COUNT 10.7 10^3/uL (4.0-10.0)
[2019-08-17 12:52] LABS: ALBUMIN 4.1 GM/DL (3.2-5.2); BILIRUBIN,TOTAL 0.5 MG/DL (0.2-1.0); CALCIUM LEVEL 9.5 MG/DL (8.8-10.2); CREATININE FOR GFR 1.08 MG/DL (0.55-1.30); GLOMERULAR FILTRATION RATE 53.9 (>45); POTASSIUM SERUM 2.9 MEQ/L (3.5-5.1); TOTAL PROTEIN 7.5 GM/DL (6.4-8.2)
== END ==
LOC: M SFHCPLAZ 10:27
PROVIDERS: ATTEND Nurse Practitioner Family
DX: R11.2 Nausea with vomiting, unspecified (principal)
CPT/HCPCS: 80053; 85025; G0463

== ENCOUNTER → 2019-08-21 | Outpatient (REF) | payer MEDICARE, BC ==
[2019-08-21 14:19] LABS: CREATININE FOR GFR 1.1 MG/DL (0.55-1.30); GLOMERULAR FILTRATION RATE 52.7 (>45); MAGNESIUM LEVEL 2.3 MG/DL (1.8-2.4); POTASSIUM SERUM 3.7 MEQ/L (3.5-5.1)
== END ==
LOC: M SFHCPLAZ 11:53
PROVIDERS: ATTEND Family Medicine
DX: R11.2 Nausea with vomiting, unspecified (principal)
CPT/HCPCS: 36415; 80048; 83735; G0463

== ENCOUNTER → 2019-09-04 | Outpatient (CLI) | payer MEDICARE, BC ==
[~2019-09-04] MED LIST changes: +LIDOCAINE 1% MDV 20ML VIAL As Ordered ONE
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
== END ==
LOC: M PAIN 14:15
PROVIDERS: ATTEND Anesthesiology
DX: M47.816 Spondylosis without myelopathy or radiculopathy, lumbar region (principal)

== ENCOUNTER → 2019-09-05 | Outpatient (REF) | payer MEDICARE, BC ==
[~2019-09-05] MED LIST changes: +HYDR-3713 PO; -LIDOCAINE 1% MDV 20ML VIAL As Ordered ONE; +POTA10TA14 PO; +VANC125C3
[2019-09-05 17:19] LABS: CALCIUM LEVEL 9.8 MG/DL (8.8-10.2); CREATININE FOR GFR 1.03 MG/DL (0.55-1.30); GLOMERULAR FILTRATION RATE 56.9 (>45); POTASSIUM SERUM 4.6 MEQ/L (3.5-5.1)
== END ==
LOC: M SFHCPLAZ 14:15
PROVIDERS: ATTEND Family Medicine
DX: E87.6 Hypokalemia (principal); I12.9 Hypertensive chronic kidney disease with stage 1 through stage 4 chronic kidney disease, or unspecified chronic kidney disease; N18.3 Chronic kidney disease, stage 3 (moderate)
CPT/HCPCS: 36415; 80048; G0463

== ENCOUNTER → 2019-09-12 | Outpatient (CLI) | payer MEDICARE, BC ==
[~2019-09-12] MED LIST changes: -HYDR-3713 PO; -POTA10TA14 PO; -VANC125C3
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
== END ==
LOC: M PAIN 14:15
PROVIDERS: ATTEND Anesthesiology
DX: M47.816 Spondylosis without myelopathy or radiculopathy, lumbar region (principal)

== ENCOUNTER → 2019-09-15 | Outpatient (CLI) | payer MEDICARE, BC ==
[~2019-09-15] MED LIST changes: +HYDR-3713 PO; +POTA10TA14 PO; +VANC125C3
== END ==
LOC: M LABSMTC 11:00
PROVIDERS: ATTEND Anesthesiology
DX: Z03.818 Encounter for observation for suspected exposure to other biological agents ruled out (principal)
CPT/HCPCS: C9803; U0003

== ENCOUNTER → 2019-09-18 | Outpatient (CLI) | payer MEDICARE, BC ==
[~2019-09-18] MED LIST changes: +BUPIVACAINE HCL 0.25% 30ML VIAL As Ordered ONE; +ISOVUE-M 300 61% 15ML VIAL As Ordered ONE; +LIDOCAINE 1% SDV 30ML VIAL As Ordered ONE
--- NOTE | 2019-09-18 15:25 | REP ---
C-ARM VIEW LOWER LUMBAR SPINE: CLINICAL HISTORY: Pain. C-arm view lower lumbar spine performed during right lower lumbar facet joint injections by Dr. Swift. [place] are seen along the lower lumbar facet joints. 25.6 seconds of fluoroscopy time utilized. Electronically Signed by Roberto Daniel MD 09/19/2019 04:39 P
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
== END ==
LOC: M PAIN 11:45
PROVIDERS: ATTEND Anesthesiology
DX: M47.816 Spondylosis without myelopathy or radiculopathy, lumbar region (principal); M47.817 Spondylosis without myelopathy or radiculopathy, lumbosacral region
CPT/HCPCS: 64493; 64494; Q9967

== ENCOUNTER → 2019-09-21 | Outpatient (REF) | payer MEDICARE, BC ==
[~2019-09-21] MED LIST changes: -BUPIVACAINE HCL 0.25% 30ML VIAL As Ordered ONE; -ISOVUE-M 300 61% 15ML VIAL As Ordered ONE; -LIDOCAINE 1% SDV 30ML VIAL As Ordered ONE
[2019-09-21 15:00] LABS: BASO % 0.5 % (0.0-1.0); EOS # 0.1 10^3/uL (0.0-0.5); EOS % 1.8 % (0.0-3.0); HEMATOCRIT 42.3 % (36.0-47.0); HEMOGLOBIN 13.6 g/dl (12.0-15.5); LYMPH % 25.6 % (24.0-44.0); MEAN CORPUSCULAR HGB CONC 32.2 g/dl (32.0-36.5); MEAN CORPUSCULAR VOLUME 93.4 fl (80.0-96.0); MONO # 0.7 10^3/uL (0.0-0.8); MONO % 9.6 % (0.0-5.0); NEUTROPHILS # 4.6 10^3/uL (1.5-8.5); NEUTROPHILS % 60.9 % (36.0-66.0); PLATELET COUNT, AUTOMATED 252 10^3/uL (150-450); RED BLOOD COUNT 4.53 10^6/uL (4.00-5.40); WHITE BLOOD COUNT 7.6 10^3/uL (4.0-10.0)
[2019-09-21 15:34] LABS: ALBUMIN 3.8 GM/DL (3.2-5.2); BILIRUBIN,TOTAL 0.5 MG/DL (0.2-1.0); CALCIUM LEVEL 9.4 MG/DL (8.8-10.2); CREATININE FOR GFR 1.1 MG/DL (0.55-1.30); GLOMERULAR FILTRATION RATE 52.7 (>45); POTASSIUM SERUM 4.3 MEQ/L (3.5-5.1); TOTAL PROTEIN 7.4 GM/DL (6.4-8.2)
== END ==
LOC: M SFHCPLAZ 13:49
PROVIDERS: ATTEND Family Medicine
DX: A04.72 Enterocolitis due to Clostridium difficile, not specified as recurrent (principal); E87.6 Hypokalemia
CPT/HCPCS: 36415; 80053; 85025; G0463

== ENCOUNTER → 2019-09-25 | Outpatient (CLI) | payer MEDICARE, BC ==
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
== END ==
LOC: M PAIN 13:45
PROVIDERS: ATTEND Anesthesiology
DX: M51.16 Intervertebral disc disorders with radiculopathy, lumbar region (principal); M54.17 Radiculopathy, lumbosacral region

== ENCOUNTER 2019-11-02 11:25 | Emergency (ER) | payer MEDICARE, BC ==
[~2019-11-02 11:25] MED LIST changes: -AMLO10TA5 PO; +AMLO1TAB24 PO; +AMLO1TAB25 PO; -AMLO5TAB6 PO; -PANT20TA2 PO; +PANT20TA6 PO; +PANT40TA29 PO; -PANT40TA3 PO
--- NOTE | 2019-12-13 14:35 | ECGEPIP ---
SINUS RHYTHM LOW QRS VOLTAGE IN PRECORDIAL LEADS MODERATE INTRAVENTRICULAR CONDUCTION DELAY ST DEVIATION AND MODERATE T-WAVE ABNORMALITY, CONSIDER ANTERIOR ISCHEMIA ABNORMAL ECG SEE SCANNED DOWNTIME REPORT MTDD
[2019-12-16 15:24] LABS: BASO # 0.1 10^3/uL (0.0-0.2); EOS # 0.1 10^3/uL (0.0-0.5); EOS % 1.8 % (0.0-3.0); HEMATOCRIT 40.4 % (36.0-47.0); LYMPH # 1.5 10^3/uL (1.5-5.0); LYMPH % 29.6 % (24.0-44.0); MEAN CORPUSCULAR HGB CONC 32.2 g/dl (32.0-36.5); MEAN CORPUSCULAR VOLUME 90.2 fl (80.0-96.0); MONO # 0.6 10^3/uL (0.0-0.8); MONO % 12.5 % (0.0-5.0); NEUTROPHILS # 2.8 10^3/uL (1.5-8.5); NEUTROPHILS % 53.3 % (36.0-66.0); PLATELET COUNT, AUTOMATED 152 10^3/uL (150-450); RED BLOOD COUNT 4.48 10^6/uL (4.00-5.40); WHITE BLOOD COUNT 5.1 10^3/uL (4.0-10.0)
[2020-01-21 12:14] LABS: BLOOD UREA NITROGEN 15 MG/DL (7-18); CALCIUM LEVEL 8.4 MG/DL (8.8-10.2); CARBON DIOXIDE LEVEL 26 MEQ/L (21-32); CHLORIDE LEVEL 109 MEQ/L (98-107); CK-MB VALUE MASS 4.5 NG/ML (<3.6); CPK CREATINE PHOSPHOKINASE 222 U/L (26-192); CREATININE FOR GFR 0.88 MG/DL (0.55-1.30); GLOMERULAR FILTRATION RATE > 60.0 (>45); GLUCOSE, FASTING 85 MG/DL (70-100); LIPASE 109 U/L (73-393); MAGNESIUM LEVEL 1.9 MG/DL (1.8-2.4); MB/CK RELATIVE INDEX 2.03 (< OR =4); POTASSIUM SERUM 3.6 MEQ/L (3.5-5.1); SODIUM LEVEL 142 MEQ/L (136-145); TROPONIN I < 0.02 NG/ML (< 0.10)
== END 2019-11-02 15:30 | disposition home or self-care (01) ==
LOC: M ED 11:25
DX: A04.72 Enterocolitis due to Clostridium difficile, not specified as recurrent (principal); R94.31 Abnormal electrocardiogram [ECG] [EKG]; I10 Essential (primary) hypertension; E78.5 Hyperlipidemia, unspecified; N18.3 Chronic kidney disease, stage 3 (moderate); Z86.61 Personal history of infections of the central nervous system; A69.20 Lyme disease, unspecified; I51.4 Myocarditis, unspecified; Z87.891 Personal history of nicotine dependence; Z88.1 Allergy status to other antibiotic agents; Z88.8 Allergy status to other drugs, medicaments and biological substances; Z79.899 Other long term (current) drug therapy

== ENCOUNTER → 2019-11-16 | Outpatient (POV) | payer MEDICARE, BC ==
[~2019-11-16] MED LIST changes: +ACAM0.05 PO; +CRES10TA PO; +CYMB60CA3 PO; +FOLI400T PO; +HYDR-643 PO; +HYDR50TA70 PO; +LAMO25TA4 PO; +LEVO75TA4 PO; +LISI-538 PO; +MED REC COMMENT; +POTA20TA6 PO; +VANC125C3 PO
== END ==
LOC: M PAIN 09:00
PROVIDERS: ATTEND Anesthesiology
DX: M47.816 Spondylosis without myelopathy or radiculopathy, lumbar region (principal)

== ENCOUNTER 2019-12-30 18:07 | Inpatient (IN) | payer MEDICARE, BC ==
[~2019-12-30] VITALS: Ht 162.6 cm; Wt 95.0 kg
[~2019-12-30 18:07] MED LIST changes: -ACAM0.05 PO; -CRES10TA PO; -CYMB60CA3 PO; -FOLI400T PO; -HYDR-643 PO; -HYDR50TA70 PO; -LAMO25TA4 PO; -LEVO75TA4 PO; -LISI-538 PO; -MED REC COMMENT; -POTA20TA6 PO; -VANC125C3 PO
[2019-12-30 19:19] LABS: HEMOGLOBIN 14.4 g/dl (12.0-15.5); MEAN CORPUSCULAR HEMOGLOBIN 28.6 pg (27.0-33.0); MEAN CORPUSCULAR VOLUME 89.3 fl (80.0-96.0); PLATELET COUNT, AUTOMATED 298 10^3/uL (150-450); RED BLOOD COUNT 5.04 10^6/uL (4.00-5.40); WHITE BLOOD COUNT 6.8 10^3/uL (4.0-10.0)
[2019-12-30] MEDS ORDERED: ACAM0.05 PO (19:24)
[2019-12-30] MEDS ORDERED: AMLO1TAB24 PO (19:27)
[2019-12-30] MEDS ORDERED: CYMB60CA3 PO (19:27)
[2019-12-30] MEDS ORDERED: FOLI400T PO (19:29)
[2019-12-30] MEDS ORDERED: HYDR-643 PO (19:34)
[2019-12-30] MEDS ORDERED: HYDR50TA70 PO (19:34)
[2019-12-30] MEDS ORDERED: LISI-538 PO (19:35)
[2019-12-30] MEDS ORDERED: METO1TAB7 PO (19:37)
[2019-12-30 19:38] LABS: AMPHETAMINES LEVEL URINE NEGATIVE (NEGATIVE); BARBITURATES URINE NEGATIVE (NEGATIVE); BENZODIAZEPINES URINE POSITIVE (NEGATIVE); CANNABINOIDS URINE NEGATIVE (NEGATIVE); COCAINE METABOLITE URINE NEGATIVE (NEGATIVE); METHADONE URINE NEGATIVE (NEGATIVE); OPIATES URINE POSITIVE (NEGATIVE); PHENCYCLIDINE URINE NEGATIVE (NEGATIVE)
[2019-12-30] MEDS ORDERED: POTA20TA6 PO (19:38)
[2019-12-30] MEDS ORDERED: CRES10TA PO (19:39)
[2019-12-30 19:46] LABS: ALBUMIN 3.6 GM/DL (3.2-5.2); ALT/SGPT 59 U/L (12-78); BILIRUBIN,DIRECT 0.1 MG/DL (0.0-0.2); BILIRUBIN,TOTAL 0.3 MG/DL (0.2-1.0); BLOOD UREA NITROGEN 9 MG/DL (7-18); CALCIUM LEVEL 8.8 MG/DL (8.8-10.2); CARBON DIOXIDE LEVEL 25 MEQ/L (21-32); CHLORIDE LEVEL 108 MEQ/L (98-107); CREATININE FOR GFR 0.89 MG/DL (0.55-1.30); ETHYL ALCOHOL (ETHANOL) 0.201 % (0.000-0.010); GLOMERULAR FILTRATION RATE > 60.0 (>45); GLUCOSE, FASTING 94 MG/DL (70-100); POTASSIUM SERUM 3.8 MEQ/L (3.5-5.1); SALICYLATE LEVEL < 1.7 MG/DL (5.0-30.0); SODIUM LEVEL 142 MEQ/L (136-145); THYROID STIMULATING HORMONE 0.158 uIU/ML (0.358-3.740); TOTAL PROTEIN 7.1 GM/DL (6.4-8.2)
[2019-12-31] VITALS (7 sets, daily range): BP systolic 104–170; BP diastolic 67–91
[2019-12-31] MEDS ORDERED: LORazepam 2 MG TAB PO PRN (00:15)
[2019-12-31] MEDS ORDERED: VANC125C3 PO (01:02)
[2019-12-31] MEDS ORDERED: LAMO25TA4 PO (01:02)
[2019-12-31] MEDS ORDERED: MED REC COMMENT (01:06)
[2019-12-31] MEDS ORDERED: MIRTAZAPINE 15 MG TAB PO ONE (03:00)
[2019-12-31] MEDS ORDERED: hydrOXYzine 50 MG TAB PO STA (03:02)
[2019-12-31] MEDS ORDERED: NORCO, ANEXSIA 5/325MG TABLET (HYDROcodone/ACETAMINOPHEN) PO ONE (03:15)
[2019-12-31] MEDS ORDERED: MAALOX 30 ML SUSP *UDC PO PRN (03:30)
[2019-12-31] MEDS ORDERED: ACETAMINOPHEN TAB 650MG DOSE (2X325MG) PO PRN (03:30)
[2019-12-31] MEDS ORDERED: traZODone 50 MG TAB PO PRN (03:30)
[2019-12-31] MEDS ORDERED: MOM 30ML SUSPENSION UDC PO PRN (03:30)
[2019-12-31] MEDS ORDERED: LEVOTHYROXINE 50MCG TABLET (0.05MG) PO SCH (06:00)
[2019-12-31] MEDS: LORazepam 2 MG TAB PO PRN ×2 (06:27→18:45)
[2019-12-31] MEDS ORDERED: THIAMINE 100 MG TAB PO SCH (09:00)
[2019-12-31] MEDS ORDERED: FOLIC ACID 1 MG TAB PO SCH (09:00)
[2019-12-31] MEDS ORDERED: MULTIVITAMINS/MINERALS THERAP 1 TAB PO SCH (09:00)
[2019-12-31] MEDS: lamoTRIgine 25 MG TAB PO SCH (09:08)
[2019-12-31] MEDS: ROSUVASTATIN 10 MG TAB (CRESTOR) PO SCH (09:09)
[2019-12-31] MEDS: FOLIC ACID 1 MG TAB PO SCH (09:10)
[2019-12-31] MEDS: PANTOPRAZOLE 40MG TAB (PROTONIX) PO SCH (09:10)
[2019-12-31] MEDS: THIAMINE 100 MG TAB PO SCH ×2 (09:10→21:42)
[2019-12-31] MEDS: DULoxetine 30 MG CAP (CYMBALTA) PO SCH (09:10)
[2019-12-31] MEDS: MULTIVITAMINS/MINERALS THERAP 1 TAB PO SCH (09:10)
[2019-12-31] MEDS: POTASSIUM CHLORIDE 10 MEQ SR TABLET PO SCH ×2 (09:11→21:42)
[2019-12-31] MEDS: VANCOMYCIN ORAL SOL 250MG/5ML ORAL SYRINGE PO SCH ×2 (09:12→21:44)
[2019-12-31] MEDS: ACAMPROSATE CALCIUM 333 MG TABLET (CAMPRAL) PO SCH ×3 (09:58→21:44)
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
[2019-12-31] MEDS: NORCO, ANEXSIA 5/325MG TABLET (HYDROcodone/ACETAMINOPHEN) PO PRN (15:59)
--- NOTE | 2019-12-31 16:55 | HPEPDOC ---
General Date of Admission Dec 31, 2019 at 03:17 Date of Service: Dec 31, 2019 Chief Complaint The patient is a 69-year-old female admitted with a reason for visit of Unspecified Depressive Disorder. Source: Patient Exam Limitations: No limitations Timing/Duration: Day(s) Severity: Moderate History of Present Illness Patient is 69 years old female with past medical history of anxiety, depression, psoriasis, osteoarthritis, CKD stage IV, C diff presented to the hospital with major depressive episode. Patient stated that after rehabilitation due to EtOH abuse she returned home and felt down and anxious. Her family insisted that she needs to go to mental health unit. During my interview patient denied fever, chills, nausea, vomiting, chest pain, palpitation. Patient stated that she had 3 episodes of loose stool daily. Of note patient did have 2 episodes of C. difficile infection in the past. Home Medications Scheduled Acamprosate Calcium (Acamprosate Calcium) 333 Mg Tablet.dr, 666 MG PO TID, (Reported) Amlodipine Besylate (Amlodipine Besylate) 5 Mg Tablet, 5 MG PO QHS, (Reported) Calcium Carbonate/Vitamin D3 (Calcium 600 + Vit D 400 Softgl) 1 Each Capsule, 1 CAP PO QHS, (Reported) Duloxetine Hcl (Cymbalta) 60 Mg Capsule.dr, 60 MG PO DAILY, (Reported) Lamotrigine (Lamotrigine) 25 Mg Tablet, 25 MG PO DAILY, (Reported) Levothyroxine Sodium (Levothyroxine Sodium) 50 Mcg Tablet, 50 MCG PO DAILY, (Reported) Lisinopril (Lisinopril) 20 Mg Tablet, 20 TAB PO QHS, (Reported) Metoprolol Succinate (Metoprolol Succinate) 50 Mg Tab.er.24h, 50 MG PO QHS, (Reported) Mirtazapine (Remeron) 30 Mg Tablet, 30 MG PO QHS, (Reported) Pantoprazole Sodium (Pantoprazole Sodium) 20 Mg Tablet.dr, 40 MG PO DAILY, (Reported) Potassium Chloride (Potassium Chloride) 20 Meq Tab.er.prt, 20 MEQ PO BID, (Reported) Rosuvastatin Calcium (Crestor) 10 Mg Tablet, 10 MG PO DAILY, (Reported) Vancomycin Hcl (Vancomycin HCl) 125 Mg Capsule, 125 MG PO QID, (Reported) started 12/26/19 x 21 days TAKE 1 CAPSULE BY MOUTH FOUR TIMES A DAY UNTIL 12/29, 1 CAP TWO TIMES A DAY 12/30-01/06 1 CAP ONCE DAILY 01/07-01/14 1 CAP EVERY OTHER DAY 01/15-02/06 Scheduled PRN Hydrocodone/Acetaminophen (Hydrocodone-Acetamin 5-325 mg) 1 Each Tablet, 1 TAB PO TID PRN for pain, (Reported) Hydroxyzine HCl (Hydroxyzine HCl) 50 Mg Tablet, 50 MG PO QPM PRN for SLEEP, (Reported) Miscellaneous Medications [Med Rec Comment] , (Reported) PATIENT HAD HOME MED LIST AND USED EXTERNAL PATIENT ASLEEP Allergies Coded Allergies: tetracycline (Verified Allergy, Mild, rash/diarrhea, 06/07/19) aripiprazole (Verified Adverse Reaction, Mild, weakness, "made me dopey", 04/16/19) estradiol (Verified Adverse Reaction, Mild, hyper, 04/16/19) Past Medical History Medical History anxiety, depression, psoriasis, osteoarthritis, CKD stage IV, C diff Family History Father from lung cancer Mother from heart attack Social History * Smoker: Denies Alcohol: heavy Drugs: denies A-FIB/CHADSVASC A-FIB History Current/History of A-Fib/PAF?: No Current PO Anticoag Therapy: No Review of Systems Constitutional: Denies: Chills, Fever ENT: Denies: Head Aches Skin: Denies: Rash, Lesions Pulmonary: Denies: Dyspnea Cardiovascular: Denies: Chest Pain, Palpitations Gastrointestinal: Reports: Diarrhea; Denies: Nausea Genitourinary: Denies: Dysuria Hematologic: Denies: Bruising Endocrine: Denies: Polydipsia Musculoskeletal: Denies: Neck Pain Neurological: Denies: Weakness Psych: Reports: Anxiety, Depression; Denies: Mood Normal Physical Examination General Exam: Positive: Alert, Cooperative Eye Exam: Positive: PERRLA ENT Exam: Positive: Atraumatic Neck Exam: Positive: Supple; Negative: JVD Chest Exam: Positive: Clear to auscultation Heart Exam: Positive: Rate Normal Telemetry: Positive: No significant arrhythmia Abdomen Exam: Positive: Normal bowel sounds Extremity Exam: Negative: Clubbing Skin Exam: Positive: Nl turgor and temperature Neuro Exam: Positive: Strength at 5/5 X4 ext, Cranial Nerves 3-12 NL Psych Exam: Positive: Mental status NL Vital Signs Vital Signs Date Time Temp Pulse Resp B/P (MAP) Pulse Ox O2 Delivery O2 Flow Rate FiO2 12/31/19 15:59 18 12/31/19 10:24 71 104/67 12/31/19 06:15 98.0 93 Room Air Laboratory Data Labs 24H Laboratory Tests 2 12/30/19 19:02: Nucleated Red Blood Cells % (auto) 0.0, Anion Gap 9, Glomerular Filtration Rate > 60.0, Calcium Level 8.8, Total Bilirubin 0.3, Direct Bilirubin 0.1, Aspartate Amino Transf (AST/SGOT) 53H, Alanine Aminotransferase (ALT/SGPT) 59, Alkaline Phosphatase 82, Total Protein 7.1, Albumin 3.6, Albumin/Globulin Ratio 1.0L, Thyroid Stimulating Hormone (TSH) 0.158L, Salicylates Level < 1.7L, Urine Opiates Screen POSITIVEH, Urine Methadone Screen NEGATIVE, Acetaminophen Level 5 .0L, Urine Barbiturates Screen NEGATIVE, Urine Phencyclidine Screen NEGATIVE, Urine Amphetamines Screen NEGATIVE, Urine Benzodiazepines Screen POSITIVEH, Urine Cocaine Metabolite Screen NEGATIVE, Urine Cannabinoids Screen NEGATIVE, Ethyl Alcohol Level 0.201H CBC/BMP Laboratory Tests 12/30/19 19:02 Assessment/Plan Patient is 69 years old female with past medical history of anxiety, depression, psoriasis, osteoarthritis, CKD stage IV, C diff presented to the hospital with major depressive episode. Patient stated that after rehabilitation due to EtOH abuse she returned home and felt down and anxious. Her family insisted that she needs to go to mental health unit. During my interview patient denied fever, chills, nausea, vomiting, chest pain, palpitation. Patient stated that she had 3 episodes of loose stool daily. Of note patient did have 2 episodes of C. difficile infection in the past. Problems (1) Depression Status: Acute Problem Text: defer to psych team (2) Hypertension Status: Acute Problem Text: Continue home cardioprotective medications (3) Diarrhea Problem Text: Patient on the vancomycin taper due to second episode of C. difficile (4) Hypothyroidism Status: Chronic Problem Text: I decreased the dose of levothyroxine to 37.5 due to low TSH Plan / VTE VTE Prophylaxis Ordered?: No VTE Exclusion Mechanical Proph: Low Risk for VTE ANGIE WATERS DO Dec 31, 2019 16:55
[2019-12-31] MEDS ORDERED: amLODIPine 5 MG TAB PO SCH (21:00)
[2019-12-31] MEDS ORDERED: lisinopriL 20 MG TAB PO SCH (21:00)
[2019-12-31] MEDS: MIRTAZAPINE 15 MG TAB PO SCH (21:42)
[2019-12-31] MEDS: hydrOXYzine 50 MG TAB PO PRN (21:42)
[2019-12-31] MEDS: METOPROLOL SUCC (TopROL XL) 50MG **XL** TAB PO SCH (21:43)
[2019-12-31] MEDS: CALCIUM/VITAMIN D 500 MG TAB PO SCH (21:43)
[2020-01-01] MEDS: LEVOTHYROXINE 37.5MCG PER 1/2TAB (0.0375MG) PO SCH (06:20)
[2020-01-01] MEDS: lamoTRIgine 25 MG TAB PO SCH (09:03)
[2020-01-01] MEDS: ACAMPROSATE CALCIUM 333 MG TABLET (CAMPRAL) PO SCH ×3 (09:03→20:28)
[2020-01-01] MEDS: THIAMINE 100 MG TAB PO SCH ×2 (09:04→20:28)
[2020-01-01] MEDS: DULoxetine 30 MG CAP (CYMBALTA) PO SCH (09:04)
[2020-01-01] MEDS: ROSUVASTATIN 10 MG TAB (CRESTOR) PO SCH (09:04)
[2020-01-01] MEDS: FOLIC ACID 1 MG TAB PO SCH (09:05)
[2020-01-01] MEDS: PANTOPRAZOLE 40MG TAB (PROTONIX) PO SCH (09:05)
[2020-01-01] MEDS: MULTIVITAMINS/MINERALS THERAP 1 TAB PO SCH (09:05)
[2020-01-01] MEDS: POTASSIUM CHLORIDE 10 MEQ SR TABLET PO SCH ×2 (09:05→20:29)
[2020-01-01] MEDS: VANCOMYCIN ORAL SOL 250MG/5ML ORAL SYRINGE PO SCH ×2 (09:06→20:28)
[2020-01-01] MEDS: NORCO, ANEXSIA 5/325MG TABLET (HYDROcodone/ACETAMINOPHEN) PO PRN ×2 (09:08→20:30)
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
[2020-01-01 11:00] VITALS: BP 110/67
[2020-01-01 15:00] VITALS: BP 120/70
[2020-01-01 18:02] VITALS: BP 158/86
[2020-01-01 18:50] VITALS: BP 158/86
[2020-01-01] MEDS: LORazepam 2 MG TAB PO PRN (18:52)
[2020-01-01] MEDS: CALCIUM/VITAMIN D 500 MG TAB PO SCH (20:28)
[2020-01-01] MEDS: MIRTAZAPINE 15 MG TAB PO SCH (20:28)
[2020-01-01] MEDS: METOPROLOL SUCC (TopROL XL) 50MG **XL** TAB PO SCH (20:29)
[2020-01-01 21:01] VITALS: BP 150/83
[2020-01-02] MEDS: LEVOTHYROXINE 37.5MCG PER 1/2TAB (0.0375MG) PO SCH (06:13)
[2020-01-02 06:51] VITALS: BP 143/98
[2020-01-02] MEDS: PANTOPRAZOLE 40MG TAB (PROTONIX) PO SCH (08:01)
[2020-01-02] MEDS: THIAMINE 100 MG TAB PO SCH ×2 (08:01→20:21)
[2020-01-02] MEDS: lamoTRIgine 25 MG TAB PO SCH (08:01)
[2020-01-02] MEDS: VANCOMYCIN ORAL SOL 250MG/5ML ORAL SYRINGE PO SCH ×2 (08:01→20:21)
[2020-01-02] MEDS: DULoxetine 30 MG CAP (CYMBALTA) PO SCH (08:01)
[2020-01-02] MEDS: POTASSIUM CHLORIDE 10 MEQ SR TABLET PO SCH ×2 (08:01→20:21)
[2020-01-02] MEDS: FOLIC ACID 1 MG TAB PO SCH (08:01)
[2020-01-02] MEDS: ROSUVASTATIN 10 MG TAB (CRESTOR) PO SCH (08:01)
[2020-01-02] MEDS: MULTIVITAMINS/MINERALS THERAP 1 TAB PO SCH (08:01)
[2020-01-02] MEDS: ACAMPROSATE CALCIUM 333 MG TABLET (CAMPRAL) PO SCH ×3 (08:02→20:20)
[2020-01-02 12:08] VITALS: BP 143/98
[2020-01-02] MEDS: NORCO, ANEXSIA 5/325MG TABLET (HYDROcodone/ACETAMINOPHEN) PO PRN ×2 (12:22→20:21)
[2020-01-02] MEDS: OLANZapine ORAL DISINTEGRATING TAB 5MG PO PRN (12:22)
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
[2020-01-02] MEDS: MIRTAZAPINE 15 MG TAB PO SCH (20:20)
[2020-01-02] MEDS: METOPROLOL SUCC (TopROL XL) 50MG **XL** TAB PO SCH (20:21)
[2020-01-02] MEDS: CALCIUM/VITAMIN D 500 MG TAB PO SCH (20:21)
[2020-01-02] MEDS: hydrOXYzine 50 MG TAB PO PRN (20:22)
[2020-01-02 21:00] VITALS: BP 144/83
[2020-01-03] MEDS: LEVOTHYROXINE 37.5MCG PER 1/2TAB (0.0375MG) PO SCH (06:12)
[2020-01-03 06:31] VITALS: BP 148/92
[2020-01-03 06:34] VITALS: BP 148/92
[2020-01-03] MEDS: VANCOMYCIN ORAL SOL 250MG/5ML ORAL SYRINGE PO SCH ×3 (08:26→20:01)
[2020-01-03] MEDS: POTASSIUM CHLORIDE 10 MEQ SR TABLET PO SCH ×2 (08:26→20:02)
[2020-01-03] MEDS: PANTOPRAZOLE 40MG TAB (PROTONIX) PO SCH (08:26)
[2020-01-03] MEDS: FOLIC ACID 1 MG TAB PO SCH (08:26)
[2020-01-03] MEDS: DULoxetine 30 MG CAP (CYMBALTA) PO SCH (08:27)
[2020-01-03] MEDS: OLANZapine ORAL DISINTEGRATING TAB 5MG PO PRN (08:27)
[2020-01-03] MEDS: MULTIVITAMINS/MINERALS THERAP 1 TAB PO SCH (08:27)
[2020-01-03] MEDS: lamoTRIgine 25 MG TAB PO SCH (08:27)
[2020-01-03] MEDS: NORCO, ANEXSIA 5/325MG TABLET (HYDROcodone/ACETAMINOPHEN) PO PRN ×2 (08:28→18:40)
[2020-01-03] MEDS: ACAMPROSATE CALCIUM 333 MG TABLET (CAMPRAL) PO SCH ×3 (08:29→20:02)
[2020-01-03] MEDS: ROSUVASTATIN 10 MG TAB (CRESTOR) PO SCH (08:29)
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
[2020-01-03] MEDS: CALCIUM/VITAMIN D 500 MG TAB PO SCH (20:02)
[2020-01-03 20:03] VITALS: BP 155/85
[2020-01-03] MEDS: MIRTAZAPINE 15 MG TAB PO SCH (20:03)
[2020-01-03] MEDS: METOPROLOL SUCC (TopROL XL) 50MG **XL** TAB PO SCH (20:03)
[2020-01-03] MEDS: hydrOXYzine 50 MG TAB PO PRN (20:06)
[2020-01-04] MEDS: LEVOTHYROXINE 37.5MCG PER 1/2TAB (0.0375MG) PO SCH (06:08)
[2020-01-04 06:23] VITALS: BP 153/90
[2020-01-04] MEDS: ACAMPROSATE CALCIUM 333 MG TABLET (CAMPRAL) PO SCH (08:27)
[2020-01-04] MEDS: ROSUVASTATIN 10 MG TAB (CRESTOR) PO SCH (08:27)
[2020-01-04] MEDS: lamoTRIgine 25 MG TAB PO SCH (08:27)
[2020-01-04] MEDS: DULoxetine 30 MG CAP (CYMBALTA) PO SCH (08:28)
[2020-01-04] MEDS: FOLIC ACID 1 MG TAB PO SCH (08:29)
[2020-01-04] MEDS: MULTIVITAMINS/MINERALS THERAP 1 TAB PO SCH (08:29)
[2020-01-04] MEDS: PANTOPRAZOLE 40MG TAB (PROTONIX) PO SCH (08:29)
[2020-01-04] MEDS: POTASSIUM CHLORIDE 10 MEQ SR TABLET PO SCH (08:29)
[2020-01-04] MEDS: VANCOMYCIN ORAL SOL 250MG/5ML ORAL SYRINGE PO SCH (08:30)
[2020-01-04] MEDS: NORCO, ANEXSIA 5/325MG TABLET (HYDROcodone/ACETAMINOPHEN) PO PRN (08:32)
[2020-01-04] MEDS: OLANZapine ORAL DISINTEGRATING TAB 5MG PO PRN (08:32)
[2020-01-04] MEDS ORDERED: LEVO75TA4 PO (11:20)
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
[2020-01-08] MEDS ORDERED: VANCOMYCIN ORAL SOL 250MG/5ML ORAL SYRINGE PO SCH (09:00)
[2020-01-17] MEDS ORDERED: VANCOMYCIN ORAL SOL 250MG/5ML ORAL SYRINGE PO SCH (09:00)
== END 2020-01-04 16:30 | disposition home or self-care (01) | DRG 885 ==
LOC: M ED 18:07 → M ED INP 12-31 03:17 → EEVIPCON 12-31 03:17 → M PSY 12-31 05:13
PROVIDERS: ADMIT Psychiatry & Neurology Psychiatry; ATTEND Psychiatry & Neurology Psychiatry
DX: F33.1 Major depressive disorder, recurrent, moderate (principal); F10.10 Alcohol abuse, uncomplicated; F41.9 Anxiety disorder, unspecified; Z79.899 Other long term (current) drug therapy; Z88.8 Allergy status to other drugs, medicaments and biological substances; E03.9 Hypothyroidism, unspecified; I10 Essential (primary) hypertension; R19.7 Diarrhea, unspecified

== ENCOUNTER → 2020-08-11 | Outpatient (CLI) | payer MEDICARE, BC ==
[~2020-08-11] MED LIST changes: +ACAM0.05 PO; +CRES10TA PO; +CYMB60CA3 PO; +FOLI400T13 PO; +HYDR-643 PO; +HYDR50TA70 PO; +LAMO25TA4 PO; +LEVO75TA4 PO; +LISI20TA33 PO; +MED REC COMMENT; +MIRT-60 PO; +POTA20TA6 PO; -REME30TA PO; +VANC125C3 PO
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
== END ==
LOC: M PAIN 13:40
PROVIDERS: ATTEND Anesthesiology
DX: M51.16 Intervertebral disc disorders with radiculopathy, lumbar region (principal); M48.062 Spinal stenosis, lumbar region with neurogenic claudication; G89.29 Other chronic pain; K21.9 Gastro-esophageal reflux disease without esophagitis; G47.33 Obstructive sleep apnea (adult) (pediatric); Z87.891 Personal history of nicotine dependence; Z88.1 Allergy status to other antibiotic agents; Z88.8 Allergy status to other drugs, medicaments and biological substances; Z79.899 Other long term (current) drug therapy

== ENCOUNTER → 2020-08-13 | Outpatient (CLI) | payer MEDICARE, BC | LOC: M LABSMTC 13:09 | PROVIDERS: ATTEND Anesthesiology | DX: Z20.828 Contact with and (suspected) exposure to other viral communicable diseases (principal) ==

== ENCOUNTER → 2020-08-18 | Outpatient (CLI) | payer MEDICARE, BC ==
[~2020-08-18] MED LIST changes: +ISOVUE-M 300 61% 15ML VIAL As Ordered ONE; +LIDOCAINE 1% SDV 30ML VIAL As Ordered ONE; +diazePAM 5MG TABLET As Ordered ONE; +methylPREDNISolone SUSP 40MG/ML 1ML VIAL (DEPO MEDROL) As Ordered ONE; +oxyCODONE 5MG TAB As Ordered ONE
--- NOTE | 2020-08-18 14:04 | REP ---
INDICATION: LUMBAR EPIDURAL STEROID INJECTION. COMPARISON: None. TECHNIQUE: Intraoperative fluoroscopic imaging using portable C-arm technique. FINDINGS: Catheter overlies the lumbar epidural space. Total fluoroscopic time 14 seconds. IMPRESSION: Images consistent with lumbar epidural injection. <Electronically signed by Jd Houser > 08/18/20 1400
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
== END ==
LOC: M PAIN 10:20
PROVIDERS: ATTEND Anesthesiology
DX: M51.16 Intervertebral disc disorders with radiculopathy, lumbar region (principal); G47.33 Obstructive sleep apnea (adult) (pediatric); K21.9 Gastro-esophageal reflux disease without esophagitis; Z87.891 Personal history of nicotine dependence; Z88.1 Allergy status to other antibiotic agents; Z88.8 Allergy status to other drugs, medicaments and biological substances; Z79.899 Other long term (current) drug therapy
CPT/HCPCS: 62323; J1030; Q9967

== ENCOUNTER → 2020-08-29 | Outpatient (CLI) | payer MEDICARE, BC ==
[~2020-08-29] MED LIST changes: -ISOVUE-M 300 61% 15ML VIAL As Ordered ONE; -LIDOCAINE 1% SDV 30ML VIAL As Ordered ONE; -diazePAM 5MG TABLET As Ordered ONE; -methylPREDNISolone SUSP 40MG/ML 1ML VIAL (DEPO MEDROL) As Ordered ONE; -oxyCODONE 5MG TAB As Ordered ONE
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
== END ==
LOC: M PAIN 14:45
PROVIDERS: ATTEND Anesthesiology
DX: M51.16 Intervertebral disc disorders with radiculopathy, lumbar region (principal); M48.062 Spinal stenosis, lumbar region with neurogenic claudication; G89.29 Other chronic pain; G47.33 Obstructive sleep apnea (adult) (pediatric); K21.9 Gastro-esophageal reflux disease without esophagitis; Z87.891 Personal history of nicotine dependence; Z88.1 Allergy status to other antibiotic agents; Z88.8 Allergy status to other drugs, medicaments and biological substances; Z79.899 Other long term (current) drug therapy

== ENCOUNTER → 2020-09-20 | Outpatient (CLI) | payer MEDICARE, BC ==
--- NOTE | 2020-09-20 16:54 | REPVR ---
PROCEDURE INFORMATION: Exam: MR Lumbar Spine Without Contrast Exam date and time: 09/20/2020 3:57 PM Age: 69 years old Clinical indication: Condition or disease; Disc degeneration; Lumbar sacral region; Additional info: Disc disorder, radiculopathy TECHNIQUE: Imaging protocol: Multiplanar magnetic resonance images of the lumbar spine without intravenous contrast. COMPARISON: MRI L-SPINE W/O CONTRAST - OUTSIDE PRIOR 02/02/2019 1:42 PM FINDINGS: Vertebral body heights are maintained. Multilevel Modic type 1 edematous degenerative endplate change.. No cord compression. No abnormal cord signal. Conus medullaris terminates at the L1 level. Paravertebral soft tissues are unremarkable. L1-L2: Broad-based disc bulge and facet hypertrophy cause mild canal narrowing with mild left and moderate to severe right foraminal narrowing. L2-L3: Broad-based disc bulge and facet hypertrophy cause mild canal narrowing and moderate bilateral foraminal narrowing. L3-L4: Broad-based disc bulge and facet hypertrophy cause mild canal narrowing with mild right and moderate left foraminal narrowing. L4-L5: Thickening of the ligamentum flavum, broad-based disc bulge, and facet hypertrophy cause mild to moderate canal narrowing and [id number] bilateral foraminal narrowing. L5-S1: Thickening of the ligamentum flavum, broad-based disc bulge, and facet hypertrophy cause mild to moderate canal narrowing and moderate bilateral foraminal narrowing. IMPRESSION: Multilevel spondylotic changes of the lumbar spine, as detailed above. Electronically signed by: Dwight Argueta On 09/20/2020 16:54:03 PM
== END ==
LOC: M RAD 15:12
PROVIDERS: ATTEND Anesthesiology
DX: M51.16 Intervertebral disc disorders with radiculopathy, lumbar region (principal); M47.26 Other spondylosis with radiculopathy, lumbar region

== ENCOUNTER → 2020-09-26 | Outpatient (CLI) | payer MEDICARE, BC | LOC: M LABSMTC 12:16 | PROVIDERS: ATTEND Anesthesiology | DX: Z01.812 Encounter for preprocedural laboratory examination (principal); Z20.822 Contact with and (suspected) exposure to COVID-19 ==

== ENCOUNTER → 2020-10-01 | Outpatient (CLI) | payer MEDICARE, BC ==
[~2020-10-01] MED LIST changes: +BUPIVACAINE HCL 0.25% 30ML VIAL As Ordered ONE; +ISOVUE-M 300 61% 15ML VIAL As Ordered ONE; +LIDOCAINE 1% SDV 30ML VIAL As Ordered ONE; +dexameTHASONE 10MG/1ML VIAL PRES.FREE (J1100 PER 1MG) As Ordered ONE; +diazePAM 5MG TABLET As Ordered ONE; +oxyCODONE 5MG TAB As Ordered ONE
--- NOTE | 2020-10-01 16:55 | REP ---
INDICATION: RIGHT TRANSFORAMINAL EPIDURAL STEROID INJECTION. COMPARISON: None. TECHNIQUE: Multiple C-arm views lower lumbar spine. FINDINGS: [place] are seen along the lower lumbar spine. A small amount of contrast is injected. IMPRESSION: 62 seconds fluoroscopy time utilized. <Electronically signed by Roberto Daniel > 10/01/20 [id number]
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
== END ==
LOC: M PAIN 13:20
PROVIDERS: ATTEND Anesthesiology
DX: M51.16 Intervertebral disc disorders with radiculopathy, lumbar region (principal); M51.17 Intervertebral disc disorders with radiculopathy, lumbosacral region; G47.33 Obstructive sleep apnea (adult) (pediatric); K21.9 Gastro-esophageal reflux disease without esophagitis; Z96.653 Presence of artificial knee joint, bilateral; Z87.891 Personal history of nicotine dependence; Z88.1 Allergy status to other antibiotic agents; Z88.8 Allergy status to other drugs, medicaments and biological substances; Z79.899 Other long term (current) drug therapy
CPT/HCPCS: 64483; 64484; J1100; Q9967

== ENCOUNTER → 2020-10-21 | Outpatient (CLI) | payer MEDICARE, BC ==
[~2020-10-21] MED LIST changes: -BUPIVACAINE HCL 0.25% 30ML VIAL As Ordered ONE; -ISOVUE-M 300 61% 15ML VIAL As Ordered ONE; -LIDOCAINE 1% SDV 30ML VIAL As Ordered ONE; -dexameTHASONE 10MG/1ML VIAL PRES.FREE (J1100 PER 1MG) As Ordered ONE; -diazePAM 5MG TABLET As Ordered ONE; -oxyCODONE 5MG TAB As Ordered ONE
--- NOTE | 2020-10-21 16:46 | REP ---
INDICATION: OTHER CHRONIC PAIN. COMPARISON: None TECHNIQUE: Multiple views of the lumbosacral spine. FINDINGS: There is a dextroconvex lumbar curve. There is bilateral marginal osteophyte formation seen at every level. Rather advanced appearing degenerative facet joint changes are present at every level bilaterally. There is disc space narrowing seen moderately to severely at every level and particularly at L1-2 and L5-S1. Anterior lipping is at every level. Vertebral body height and alignment is within normal limits. Flexion and extension bending views show no evidence of instability. IMPRESSION: Advanced chronic changes. <Electronically signed by Christopher Brambila > 10/21/20 [id number]
== END ==
LOC: M RAD 15:14
PROVIDERS: ATTEND Anesthesiology
DX: G89.29 Other chronic pain (principal); M51.36 Other intervertebral disc degeneration, lumbar region; M25.78 Osteophyte, vertebrae
CPT/HCPCS: 72114; G0463

== ENCOUNTER → 2020-10-21 | Outpatient (CLI) | payer MEDICARE, BC ==
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
== END ==
LOC: M PAIN 12:40
PROVIDERS: ATTEND Anesthesiology
DX: G89.29 Other chronic pain (principal); M48.062 Spinal stenosis, lumbar region with neurogenic claudication; M51.16 Intervertebral disc disorders with radiculopathy, lumbar region; I10 Essential (primary) hypertension; M54.2 Cervicalgia; K21.9 Gastro-esophageal reflux disease without esophagitis; G47.33 Obstructive sleep apnea (adult) (pediatric); Z87.891 Personal history of nicotine dependence; Z79.899 Other long term (current) drug therapy; Z88.8 Allergy status to other drugs, medicaments and biological substances

== ENCOUNTER → 2020-11-18 | Outpatient (CLI) | payer MEDICARE, BC | LOC: M PAIN 10:00 | PROVIDERS: ATTEND Anesthesiology | DX: M48.062 Spinal stenosis, lumbar region with neurogenic claudication (principal); M51.16 Intervertebral disc disorders with radiculopathy, lumbar region; G89.29 Other chronic pain; G47.33 Obstructive sleep apnea (adult) (pediatric); K21.9 Gastro-esophageal reflux disease without esophagitis; Z87.891 Personal history of nicotine dependence; Z88.1 Allergy status to other antibiotic agents; Z88.8 Allergy status to other drugs, medicaments and biological substances; Z79.899 Other long term (current) drug therapy ==

== ENCOUNTER → 2020-12-17 | Outpatient (CLI) | payer MEDICARE, BC | LOC: M LABSMTC 10:30 | PROVIDERS: ATTEND Anesthesiology | DX: Z01.812 Encounter for preprocedural laboratory examination (principal); Z20.822 Contact with and (suspected) exposure to COVID-19 ==

== ENCOUNTER 2020-12-22 15:21 | Emergency (ER) | payer MEDICARE, BC ==
[~2020-12-22] VITALS: Ht 162.6 cm; Wt 83.2 kg
[~2020-12-22 15:21] MED LIST changes: -LOSA50TA28 PO; +LOSA50TA88 PO; -MIRT1TAB17 PO; -POTA-151 PO; +POTA10TA14 PO; -POTA1TAB24 PO; +POTA20TA6 PO; -TIZA10TA PO; +TIZA4TAB4 PO
[2020-12-22 16:46] LABS: BASO # 0.1 10^3/uL (0.0-0.2); BASO % 0.7 % (0.0-1.0); EOS % 0.1 % (0.0-3.0); HEMATOCRIT 39.7 % (36.0-47.0); HEMOGLOBIN 13.5 g/dl (12.0-15.5); LYMPH # 0.6 10^3/uL (1.5-5.0); LYMPH % 7.6 % (24.0-44.0); MEAN CORPUSCULAR HEMOGLOBIN 30.1 pg (27.0-33.0); MEAN CORPUSCULAR VOLUME 88.4 fl (80.0-96.0); MONO # 0.6 10^3/uL (0.0-0.8); MONO % 7.6 % (2.0-8.0); PLATELET COUNT, AUTOMATED 225 10^3/uL (150-450); RED BLOOD COUNT 4.49 10^6/uL (4.00-5.40); WHITE BLOOD COUNT 7.4 10^3/uL (4.0-10.0)
--- NOTE | 2020-12-22 17:09 | REP ---
INDICATION: CHEST PAIN. COMPARISON: Comparison chest x-ray June 07, 2019. TECHNIQUE: Portable upright AP chest radiograph. FINDINGS: The lungs are well inflated and free of infiltrate. Pleural angles are sharp. Heart size is normal. Pulmonary vasculature is not increased. Patient is rotated somewhat to the left as before. EKG electrodes are seen. IMPRESSION: No active disease. <Electronically signed by Dalton Tejada > 12/22/20 1347
[2020-12-22 17:15] LABS: CALCIUM LEVEL 9.2 MG/DL (8.8-10.2); CREATININE FOR GFR 1.28 MG/DL (0.55-1.30); POTASSIUM SERUM 3.7 MEQ/L (3.5-5.1)
[2020-12-22] MEDS ORDERED: NS 1,000 ML IV ONE ×2 (17:20→21:00)
[2020-12-22] MEDS ORDERED: MIRTAZAPINE 15 MG TAB PO STA (19:39)
[2020-12-22 20:38] LABS: BILIRUBIN,DIRECT 0.4 MG/DL (0.0-0.2); BILIRUBIN,TOTAL 0.9 MG/DL (0.2-1.0); TOTAL PROTEIN 7.2 GM/DL (6.4-8.2)
[2020-12-22] MEDS ORDERED: LORazepam 2 MG/ML VIAL IV STA (21:04)
[2020-12-22] MEDS ORDERED: LORazepam 2 MG/ML VIAL As Ordered ONE (21:39)
[2020-12-22] MEDS ORDERED: MIRT1TAB17 PO (22:52)
[2020-12-22 23:15] VITALS: BP 127/80
--- NOTE | 2020-12-23 05:00 | ECGEPIP ---
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
== END 2020-12-22 23:44 | disposition home or self-care (01) ==
LOC: M ED 15:21
DX: F10.10 Alcohol abuse, uncomplicated (principal); E87.3 Alkalosis; R00.0 Tachycardia, unspecified; I10 Essential (primary) hypertension; E78.5 Hyperlipidemia, unspecified; E03.9 Hypothyroidism, unspecified; M54.5 Low back pain; Z79.899 Other long term (current) drug therapy; Z88.8 Allergy status to other drugs, medicaments and biological substances; Z79.890 Hormone replacement therapy; Z88.1 Allergy status to other antibiotic agents
CPT/HCPCS: 36600; 71045; 80047; 80048; 80076; 82803; 83605; 84484; 85025; 93005; 93041; 96361; 96374; 99285; G0463; J2060

== ENCOUNTER → 2020-12-22 | Outpatient (CLI) | payer MEDICARE, BC ==
[~2020-12-22] MED LIST changes: -CYMB60CA3 PO; +CYMB60CA4 PO; +LOSA50TA28 PO; -LOSA50TA88 PO; +MIRT1TAB17 PO; +POTA-151 PO; -POTA10TA14 PO; +POTA1TAB24 PO; -POTA20TA6 PO; +TIZA10TA PO; -TIZA4TAB4 PO
== END ==
LOC: M PAIN 13:45
PROVIDERS: ATTEND Anesthesiology
DX: M48.062 Spinal stenosis, lumbar region with neurogenic claudication (principal); M51.16 Intervertebral disc disorders with radiculopathy, lumbar region; G47.33 Obstructive sleep apnea (adult) (pediatric); I10 Essential (primary) hypertension; K21.9 Gastro-esophageal reflux disease without esophagitis; E87.6 Hypokalemia; Z87.891 Personal history of nicotine dependence; Z79.899 Other long term (current) drug therapy; Z88.8 Allergy status to other drugs, medicaments and biological substances

== ENCOUNTER → 2021-03-17 | Outpatient (CLI) | payer MEDICARE, BC ==
[~2021-03-17] MED LIST changes: +MIRT1TAB17 PO
== END ==
LOC: M PAIN 14:30
PROVIDERS: ATTEND Nurse Practitioner Family
DX: M48.062 Spinal stenosis, lumbar region with neurogenic claudication (principal); G89.29 Other chronic pain; K21.9 Gastro-esophageal reflux disease without esophagitis; G47.33 Obstructive sleep apnea (adult) (pediatric); Z96.652 Presence of left artificial knee joint; Z96.641 Presence of right artificial hip joint; Z87.891 Personal history of nicotine dependence; Z88.1 Allergy status to other antibiotic agents; Z88.8 Allergy status to other drugs, medicaments and biological substances; Z79.899 Other long term (current) drug therapy

== ENCOUNTER → 2021-10-26 | Outpatient (CLI) | payer MEDICARE, BC ==
[~2021-10-26] MED LIST changes: +LOSA50TA28 PO; -LOSA50TA88 PO; +POTA-151 PO; -POTA10TA14 PO; +POTA1TAB24 PO; -POTA20TA6 PO; +TIZA10TA PO; -TIZA4TAB4 PO
== END ==
LOC: M PAIN 13:00
PROVIDERS: ATTEND Anesthesiology
DX: M54.50 Low back pain, unspecified (principal); I10 Essential (primary) hypertension; M54.2 Cervicalgia; K21.9 Gastro-esophageal reflux disease without esophagitis; R13.10 Dysphagia, unspecified; G47.33 Obstructive sleep apnea (adult) (pediatric); N28.9 Disorder of kidney and ureter, unspecified; I95.1 Orthostatic hypotension; E87.6 Hypokalemia; R00.0 Tachycardia, unspecified; Z87.891 Personal history of nicotine dependence; Z79.890 Hormone replacement therapy; Z79.899 Other long term (current) drug therapy; Z96.653 Presence of artificial knee joint, bilateral; Z88.8 Allergy status to other drugs, medicaments and biological substances

== ENCOUNTER → 2021-10-27 | Outpatient (CLI) | payer MEDICARE, BC | LOC: M RAD 11:35 | PROVIDERS: ATTEND Family Medicine | DX: N28.89 Other specified disorders of kidney and ureter (principal); N28.1 Cyst of kidney, acquired ==

== ENCOUNTER → 2021-11-02 | Outpatient (CLI) | payer MEDICARE, BC | LOC: M PAIN 13:00 | PROVIDERS: ATTEND Anesthesiology | DX: M79.10 Myalgia, unspecified site (principal); M79.18 Myalgia, other site; I10 Essential (primary) hypertension; M54.50 Low back pain, unspecified; M54.2 Cervicalgia; K21.9 Gastro-esophageal reflux disease without esophagitis; R13.14 Dysphagia, pharyngoesophageal phase; N28.9 Disorder of kidney and ureter, unspecified; G47.33 Obstructive sleep apnea (adult) (pediatric); I95.1 Orthostatic hypotension; E87.6 Hypokalemia; R00.0 Tachycardia, unspecified; Z87.891 Personal history of nicotine dependence; Z79.890 Hormone replacement therapy; Z79.899 Other long term (current) drug therapy; Z88.8 Allergy status to other drugs, medicaments and biological substances | CPT/HCPCS: 76000; G0463 ==

== ENCOUNTER → 2021-12-04 | Outpatient (CLI) | payer MEDICARE, BC | LOC: M RAD 14:05 | PROVIDERS: ATTEND Nurse Practitioner Family | DX: R42 Dizziness and giddiness (principal); W19.XXXA Unspecified fall, initial encounter; Z12.31 Encounter for screening mammogram for malignant neoplasm of breast; Z13.820 Encounter for screening for osteoporosis; Z78.0 Asymptomatic menopausal state; M85.89 Other specified disorders of bone density and structure, multiple sites ==

== ENCOUNTER → 2021-12-04 | Outpatient (CLI) | payer MEDICARE, BC | LOC: M WHC 12:28 | PROVIDERS: ATTEND Family Medicine | DX: Z13.820 Encounter for screening for osteoporosis (principal); Z12.31 Encounter for screening mammogram for malignant neoplasm of breast; Z78.0 Asymptomatic menopausal state ==

== ENCOUNTER → 2021-12-22 | Outpatient (CLI) | payer MEDICARE, BC ==
[~2021-12-22] MED LIST changes: +BUPIVACAINE HCL 0.25% 10ML VIAL As Ordered ONE; +BUPIVACAINE HCL 0.25% 30ML VIAL As Ordered ONE; +NORCO, ANEXSIA 5/325MG TABLET (HYDROcodone/ACETAMINOPHEN) As Ordered ONE; +TRIAMCINOLONE ACETONIDE SUSP 40 MG/ML VIAL (J3301) As Ordered ONE; +diazePAM 5MG TABLET As Ordered ONE
== END ==
LOC: M PAIN 14:00
PROVIDERS: ATTEND Anesthesiology
DX: M79.18 Myalgia, other site (principal); I10 Essential (primary) hypertension; M54.50 Low back pain, unspecified; M54.2 Cervicalgia; K21.9 Gastro-esophageal reflux disease without esophagitis; R13.19 Other dysphagia; G47.33 Obstructive sleep apnea (adult) (pediatric); N28.9 Disorder of kidney and ureter, unspecified; I95.1 Orthostatic hypotension; E87.6 Hypokalemia; Z87.891 Personal history of nicotine dependence; Z79.890 Hormone replacement therapy; Z79.899 Other long term (current) drug therapy; Z88.8 Allergy status to other drugs, medicaments and biological substances
CPT/HCPCS: 20552; J3301

== ENCOUNTER → 2022-03-09 | Outpatient (CLI) | payer MEDICARE, BC ==
[~2022-03-09] MED LIST changes: -BUPIVACAINE HCL 0.25% 10ML VIAL As Ordered ONE; -BUPIVACAINE HCL 0.25% 30ML VIAL As Ordered ONE; -NORCO, ANEXSIA 5/325MG TABLET (HYDROcodone/ACETAMINOPHEN) As Ordered ONE; -PAXI40TA10 PO; +PAXI40TA12 PO; -TRIAMCINOLONE ACETONIDE SUSP 40 MG/ML VIAL (J3301) As Ordered ONE; -diazePAM 5MG TABLET As Ordered ONE
== END ==
LOC: M PAIN 15:00
PROVIDERS: ATTEND Anesthesiology
DX: M48.061 Spinal stenosis, lumbar region without neurogenic claudication (principal); G89.29 Other chronic pain; I10 Essential (primary) hypertension; K21.9 Gastro-esophageal reflux disease without esophagitis; G47.33 Obstructive sleep apnea (adult) (pediatric); Z88.1 Allergy status to other antibiotic agents; Z88.8 Allergy status to other drugs, medicaments and biological substances; Z79.899 Other long term (current) drug therapy

== ENCOUNTER → 2022-04-14 | Outpatient (CLI) | payer MEDICARE, BC | LOC: M PAIN 13:45 | PROVIDERS: ATTEND Anesthesiology | DX: M54.50 Low back pain, unspecified (principal); G89.29 Other chronic pain; M24.20 Disorder of ligament, unspecified site; I10 Essential (primary) hypertension; K21.9 Gastro-esophageal reflux disease without esophagitis; G47.33 Obstructive sleep apnea (adult) (pediatric); Z96.641 Presence of right artificial hip joint; Z96.652 Presence of left artificial knee joint; Z87.891 Personal history of nicotine dependence; Z88.1 Allergy status to other antibiotic agents; Z88.8 Allergy status to other drugs, medicaments and biological substances; Z79.899 Other long term (current) drug therapy | CPT/HCPCS: 76000; G0463 ==

== ENCOUNTER → 2022-09-06 | Outpatient (CLI) | payer MEDICARE, BC | LOC: M PAIN 17:00 | PROVIDERS: ATTEND Anesthesiology | DX: M47.816 Spondylosis without myelopathy or radiculopathy, lumbar region (principal); M54.50 Low back pain, unspecified; G89.29 Other chronic pain; G47.33 Obstructive sleep apnea (adult) (pediatric); I10 Essential (primary) hypertension; K21.9 Gastro-esophageal reflux disease without esophagitis; Z96.641 Presence of right artificial hip joint; Z96.652 Presence of left artificial knee joint; Z87.891 Personal history of nicotine dependence; Z88.1 Allergy status to other antibiotic agents; Z88.8 Allergy status to other drugs, medicaments and biological substances; Z79.899 Other long term (current) drug therapy ==

== ENCOUNTER → 2022-11-05 | Outpatient (CLI) | payer MEDICARE, BC | LOC: M PAIN 15:15 | PROVIDERS: ATTEND Nurse Practitioner Family | DX: M47.816 Spondylosis without myelopathy or radiculopathy, lumbar region (principal); G89.29 Other chronic pain; I10 Essential (primary) hypertension; K21.9 Gastro-esophageal reflux disease without esophagitis; G47.33 Obstructive sleep apnea (adult) (pediatric); Z96.641 Presence of right artificial hip joint; Z96.652 Presence of left artificial knee joint; Z87.891 Personal history of nicotine dependence; Z88.1 Allergy status to other antibiotic agents; Z88.8 Allergy status to other drugs, medicaments and biological substances; Z79.899 Other long term (current) drug therapy ==

== ENCOUNTER → 2022-11-24 | Outpatient (CLI) | payer MEDICARE, BC | LOC: M PAIN 11:00 | PROVIDERS: ATTEND Anesthesiology | DX: M47.816 Spondylosis without myelopathy or radiculopathy, lumbar region (principal); G89.29 Other chronic pain; M54.50 Low back pain, unspecified; I10 Essential (primary) hypertension; M54.2 Cervicalgia; K21.9 Gastro-esophageal reflux disease without esophagitis; R13.12 Dysphagia, oropharyngeal phase; G47.33 Obstructive sleep apnea (adult) (pediatric); E87.6 Hypokalemia; Z87.891 Personal history of nicotine dependence; Z79.891 Long term (current) use of opiate analgesic; Z79.890 Hormone replacement therapy; Z79.899 Other long term (current) drug therapy; Z88.8 Allergy status to other drugs, medicaments and biological substances ==

== ENCOUNTER → 2023-02-23 | Outpatient (CLI) | payer MEDICARE, BC | LOC: M PAIN 11:45 | PROVIDERS: ATTEND Anesthesiology | DX: M54.50 Low back pain, unspecified (principal); G89.29 Other chronic pain; I10 Essential (primary) hypertension; M54.2 Cervicalgia; K21.9 Gastro-esophageal reflux disease without esophagitis; R13.10 Dysphagia, unspecified; G47.33 Obstructive sleep apnea (adult) (pediatric); E87.6 Hypokalemia; Z87.891 Personal history of nicotine dependence; Z79.890 Hormone replacement therapy; Z79.899 Other long term (current) drug therapy; Z88.8 Allergy status to other drugs, medicaments and biological substances ==

== ENCOUNTER → 2023-06-15 | Outpatient (CLI) | payer MEDICARE, BC ==
[~2023-06-15] MED LIST changes: -MIRT-60 PO; +MIRT-89 PO
== END ==
LOC: M PAIN 15:30
PROVIDERS: ATTEND Anesthesiology
DX: M48.062 Spinal stenosis, lumbar region with neurogenic claudication (principal); M25.552 Pain in left hip; G89.29 Other chronic pain; M54.50 Low back pain, unspecified; I10 Essential (primary) hypertension; M54.2 Cervicalgia; K21.9 Gastro-esophageal reflux disease without esophagitis; G47.33 Obstructive sleep apnea (adult) (pediatric); Z87.891 Personal history of nicotine dependence; Z79.890 Hormone replacement therapy; Z79.899 Other long term (current) drug therapy; Z88.8 Allergy status to other drugs, medicaments and biological substances